=== PATIENT | female | born 1990 | race Caucasian/White ===

== ENCOUNTER 2017-02-04 08:51 | Outpatient (CLI) | payer BC | END 2017-02-04 08:52 | disposition home or self-care (01) | DX: K50.819 Crohn's disease of both small and large intestine with unspecified complications (principal) ==

== ENCOUNTER 2017-07-04 08:22 | Outpatient (CLI) | payer BC ==
[2017-07-04 12:17] LABS: HCT - HEMATOCRIT 39.7 % (37.0-47.0); HGB - HEMOGLOBIN 13.3 g/dL (12.0-16.0); MEAN CORPUSCULAR HEMOGLOBIN 30.5 pg (27.0-31.0); MEAN CORPUSCULAR HGB CONC 33.5 g/dL (32.0-36.0); MEAN PLATELET VOLUME 7.9 fL (7.9-10.8); RED BLOOD COUNT 4.36 10^6/uL (4.20-5.40); RED CELL DISTRIBUTION WIDTH 14.5 % (12.0-15.0); WHITE BLOOD COUNT 5.1 x10^3/uL (4.8-10.8)
[2017-07-04 12:19] LABS: ALBUMIN/GLOBULIN RATIO 1.2 (1.0-2.2); BILIRUBIN,TOTAL 0.5 mg/dL (0.2-1.0); CALCIUM 8.6 mg/dL (8.5-10.3); POTASSIUM 3.7 mmol/L (3.5-5.0); TOTAL PROTEIN 6.7 g/dL (6.7-8.2)
== END 2017-07-04 08:23 | disposition home or self-care (01) ==
LOC: LAB.F 08:22
PROVIDERS: ATTEND Physician Assistant
DX: K50.819 Crohn's disease of both small and large intestine with unspecified complications (principal)
CPT/HCPCS: 36415; 80053

== ENCOUNTER 2017-08-19 16:56 | Outpatient (CLI) | payer BC ==
--- NOTE | 2017-08-19 20:21 | Ultrasound Preliminary Report ---
Exam: US PELVIC W/TRANSVAGINAL IMPRESSION: 1. IUD in good position. 2. No ovarian torsion. 3. 15.2 x 6.2 x 12.1 cm simple cyst consistent with a left ovarian or adnexal cyst. [facility] SITE ID: [id number]
--- NOTE | 2017-08-19 20:43 | Ultrasound Report ---
EXAM: PELVIC ULTRASOUND EXAM DATE: 08/19/2017 05:59 PM. CLINICAL HISTORY: History of Crohn's disease. Follow-up left ovarian cyst. Unknown LMP. G0. IUD. COMPARISON: No prior pelvic ultrasound. CT abdomen and pelvis 12/29/2015. TECHNIQUE: Realtime transabdominal pelvic scan performed to identify the uterus and adnexa and as an overview of other pelvic structures, followed by transvaginal scan to provide greater detail of the u terus and adnexa, with static image documentation. FINDINGS: Uterus: 6.2 x 3.2 x 5.4 cm, volume 56.0 cc. Anteverted position. Normal overall size and echotexture. Masses: None. Endometrium: 3.3 mm. IUD in position. Cervix: Unremarkable. Right Ovary: 1.9 x 1.5 x 2.2 cm, volume 3.2 cc. Normal blood flow. 1.4 x 1.2 x 1.4 cm simple cyst. Left Ovary: 15.2 x 6.2 x 12.6 cm, volume 621 cc. Blood flow seen within the solid component of this c yst. There is a 15.2 x 6.2 x 12.1 cm thin-walled sonolucent cyst either arising from the left ovary or imm ediate adjacent to it, extending into the cul-de-sac, in close proximity to the right ovary. At the t davida of the previous CT study, no pelvic nor ovarian lesion seen. Free Fluid: None. Other: None. IMPRESSION: 1. IUD in good position. 2. No ovarian torsion. 3. 15.2 x 6.2 x 12.1 cm simple cyst consistent with a left ovarian or adnexal cyst. [facility] Referring Provider Line: [phone] SITE ID: [id number]
== END 2017-08-19 16:57 | disposition home or self-care (01) ==
LOC: DI 16:56
PROVIDERS: ATTEND Obstetrics & Gynecology
DX: N83.292 Other ovarian cyst, left side (principal); Z97.5 Presence of (intrauterine) contraceptive device
CPT/HCPCS: 76830; 76856

== ENCOUNTER 2017-10-11 15:01 | Outpatient (CLI) | payer BC ==
[2017-10-11 15:46] LABS: BASOPHILS % (AUTO) 0.5 %; EOSINOPHILS # (AUTO) 0.1 10^3/uL (0.0-0.7); HGB - HEMOGLOBIN 13.5 g/dL (12.0-16.0); LYMPHOCYTES % (AUTO) 30.8 %; MEAN CORPUSCULAR HEMOGLOBIN 30.5 pg (27.0-31.0); MEAN CORPUSCULAR HGB CONC 34.1 g/dL (32.0-36.0); MEAN CORPUSCULAR VOLUME 89.4 fL (81.0-99.0); MEAN PLATELET VOLUME 7.7 fL (7.9-10.8); MONOCYTES # (AUTO) 0.4 10^3/uL (0.0-1.0); MONOCYTES % (AUTO) 5.7 %; PLT - PLATELET COUNT 267 10^3/uL (130-450); RED BLOOD COUNT 4.44 10^6/uL (4.20-5.40); RED CELL DISTRIBUTION WIDTH 13.6 % (12.0-15.0); WHITE BLOOD COUNT 6.5 x10^3/uL (4.8-10.8)
== END 2017-10-11 15:02 | disposition home or self-care (01) ==
LOC: LAB 15:01
PROVIDERS: ATTEND Obstetrics & Gynecology
DX: Z01.812 Encounter for preprocedural laboratory examination (principal); D27.1 Benign neoplasm of left ovary
CPT/HCPCS: 36415; 85025; 86850; 86900; 86901

== ENCOUNTER 2017-10-12 06:22 | Inpatient (IN) | payer BC ==
--- NOTE | 2017-10-11 19:13 | PREOP HISTORY & PHYSICAL ---
DATE OF ADMISSION AND SURGERY: 10/12/2017. IDENTIFICATION: This is a 27-year-old G0. HISTORY OF PRESENT ILLNESS: Megan presents today for her preop visit. She has been scheduled for exploratory laparotomy and left ovarian cystectomy. Megan actually had an MRI in [place] on 08/12/2017, and an incidental finding of a mass of the ovary was seen. A subsequent ultrasound on 08/19/2017 of the pelvis and abdomen revealed the uterus measuring 6.2 x 3.2 x 5.4 cm and anteverted. Endometrium measured 3.3 cm. IUD in position. Right ovary measured 1.9 x 1.5 x 2.2 cm. Normal blood flow. There was a 1.4 x 1.2 x 1.4 cm simple cyst. Left ovary measures 15.2 x 6.2 x 12.6 cm. Blood flow seen within the solid component of the cyst and a 15.2 x 6.2 x 12.1 cm thin-walled sonolucent cyst, either arising from the left ovary immediately adjacent to it, extending to the cul-de-sac in close proximity of the right ovary. No free fluid. I discussed with Megan my recommendations for exploratory laparotomy and left ovarian cystectomy. Included in our discussion were the risks of hemorrhage, infection and damage to surrounding organs, which may include, but not limited to an inadvertent laceration, cauterization or ligation of the adjacent intestines, bladder and ureters. Furthermore, with this procedure due to the large size of the cyst, there was a potential of me having to remove the left adnexa. After all of Megan's questions were answered to her satisfaction, she verbalized her desire to proceed with surgery. All her questions were answered to her satisfaction. We will proceed to surgery. Currently, Megan is doing well. Denies any nausea, vomiting, fevers, chills, diarrhea or constipation. PAST MEDICAL HISTORY: 1. Crohn's disease. 2. Depression and anxiety. 3. Rheumatoid arthritis. 4. Acne. PAST SURGICAL HISTORY: 1. Left knee subluxation. 2. 07/20/2016, laparoscopic ileocolectomy with extensive small bowel resection. 3. Postop complications of abscesses. ALLERGIES: 1. SULFA IN WHICH SHE HAS A RASH. 2. VICODIN IN WHICH SHE HAS PRURITUS. MEDICATIONS: 1. Minocycline. 2. Cimzia. 3. Melatonin. SOCIAL HISTORY: She denies any tobacco or illicit drug use. She consumes alcohol on a rare basis. She is currently working with her mother, Krista Jules. She is currently not seeing anyone. She uses [facility] in [place], [place]. PAST SURGICAL HISTORY: Nulligravid but she does want children. PAST GYNECOLOGY HISTORY: She has monthly menses and bleeds for 5-7 days. She denies any dysmenorrhea or menorrhagia. Megan does have a difficult time taking the pill as she forgets. She received the Mirena IUD on 04/07/2016 and it has been working quite well. PHYSICAL EXAMINATION: VITAL SIGNS: Height of 71 inches. Blood pressure 120/80. Weight is 230 pounds. BMI is 32.1. GENERAL: Megan is a well-developed, well-nourished, female, in no apparent distress. She is alert and oriented x3. HEENT: Within normal limits. HEART: Regular. No murmurs, rubs. LUNGS: Lungs are clear to auscultation bilaterally. ABDOMEN: Soft, nontender. No masses, rebound, rigidity or guarding. She does have a well-healed laparoscopic incision secondary to her previous intestinal surgery. ASSESSMENT: 1. A 27-year-old G0. 2. Left ovarian cyst. 3. Posttraumatic stress disorder secondary to previous surgeries from her Crohn 's disease. PLAN: 1. We will obtain preoperative labs. 2. Prescription for Ativan for Megan since she is having some significant anxiety in anticipation of tomorrow's surgery. 3. Postop medications including oxycodone and Vioxx for Megan. 4. Megan to see me in 2 weeks for routine postop visit. TD: 10/11/2017 20:12 SUZANNE
[2017-10-12] MEDS ORDERED: ACETAMINOPHEN 1,000 MG/100 ML 100 ML IV ONE (06:31)
[2017-10-12] MEDS ORDERED: ceFAZolin 2 GM/50 ML 2 GM/50 ML BAG IV ONE (06:32)
[2017-10-12] MEDS ORDERED: CELECOXIB 100 MG CAPSULE PO ONE (06:33)
[2017-10-12] MEDS ORDERED: LACTATED RINGERS 1,000 ML IV ONE ×3 (07:21→09:48)
[2017-10-12 07:26] LABS: BASOPHILS % (AUTO) 0.3 %; EOSINOPHILS # (AUTO) 0.1 10^3/uL (0.0-0.7); EOSINOPHILS % (AUTO) 2.2 %; HGB - HEMOGLOBIN 13.6 g/dL (12.0-16.0); LYMPHOCYTES # (AUTO) 1.2 10^3/uL (1.5-3.5); LYMPHOCYTES % (AUTO) 25.8 %; MEAN CORPUSCULAR HEMOGLOBIN 30.1 pg (27.0-31.0); MEAN CORPUSCULAR HGB CONC 33.2 g/dL (32.0-36.0); MEAN CORPUSCULAR VOLUME 90.6 fL (81.0-99.0); MEAN PLATELET VOLUME 7.7 fL (7.9-10.8); MONOCYTES # (AUTO) 0.3 10^3/uL (0.0-1.0); MONOCYTES % (AUTO) 7.2 %; NEUTROPHILS % (AUTO) 64.5 %; PLT - PLATELET COUNT 266 10^3/uL (130-450); RED BLOOD COUNT 4.52 10^6/uL (4.20-5.40); RED CELL DISTRIBUTION WIDTH 13.1 % (12.0-15.0); WHITE BLOOD COUNT 4.7 x10^3/uL (4.8-10.8)
[2017-10-12 07:38] LABS: HCG,QUALITATIVE BLOOD NEGATIVE
[2017-10-12] MEDS ORDERED: METHYLENE BLUE 0.5% 50 MG/10 ML AMPULE IVP ONE (08:28)
[2017-10-12] MEDS ORDERED: NEOSTIGMINE 1 MG/1 ML 10 ML MDV IVP ONE (08:59)
[2017-10-12] MEDS ORDERED: PROPOFOL 200 MG/20 ML VIAL IVP ONE (08:59)
[2017-10-12] MEDS ORDERED: ROCURONIUM 50 MG/5 ML VIAL IVP ONE (08:59)
[2017-10-12] MEDS ORDERED: KETOROLAC 30 MG/ML VIAL IVP ONE (08:59)
[2017-10-12] MEDS ORDERED: MIDAZOLAM 2 MG/2 ML VIAL IVP ONE (08:59)
[2017-10-12] MEDS ORDERED: KETAMINE 500 MG/10 ML VIAL IVP ONE (08:59)
[2017-10-12] MEDS ORDERED: GLYCOPYRROLATE 1 MG/5 ML VIAL IVP ONE (08:59)
[2017-10-12] MEDS ORDERED: ONDANSETRON 4 MG/2 ML VIAL IVP ONE (08:59)
[2017-10-12] MEDS ORDERED: fentaNYL 100 MCG/2 ML VIAL IVP ONE (08:59)
[2017-10-12] MEDS ORDERED: SODIUM CHLORIDE FLUSH 0.9% 10 ML SYRINGE IVP PRN (09:49)
[2017-10-12] MEDS ORDERED: LORazepam 2 MG/ML VIAL IVP PRN (09:49)
[2017-10-12] MEDS ORDERED: MAGNESIUM HYDROXIDE 2,400 MG/30 ML UDC PO PRN (09:53)
[2017-10-12] MEDS ORDERED: diphenhydrAMINE 25 MG CAPSULE PO PRN (09:54)
[2017-10-12] MEDS ORDERED: ZOLPIDEM 5 MG TABLET PO PRN (09:54)
[2017-10-12] MEDS ORDERED: ACETAMINOPHEN 325 MG TABLET PO SCH (10:00)
[2017-10-12] MEDS: HYDROmorphone 1 MG/ML SYRINGE ONE ×2 (10:01→10:07)
--- NOTE | 2017-10-12 10:08 | OPERATIVE REPORT ---
Operative Report - General Admit Date: 10/12/17 - Other Other Information/Narrative: Date of Operation: 10/12/2017 Surgeon: Kaelyn Ramírez DO FACOG Surveillance Sensor Officer: Shakir Dickson MD FACOG Dietary Tech: Shanel Lala CRNA Anesthesia: GET Pre-op Dx: 1. 27 yo G0 2. Left ovarian cyst Post-op Dx: 1. 27 yo G0 2. Bilateral adnexal cysts 3. Endometriosis Procedure: 1. Exploratory laparotomy 2. Excision of bilateral adnexal cysts 3. Biopsy left side wall Findings: 1. Multiple bilateral cysts on adnexae. Not intrinsic to the ovaries or fallopian tubes. 2. Peritoneal endometriotic implants 3. Normal uterus, fallopian tubes, ovaries Specimens: 1. Pelvic washings 2. Right ovarian cysts 3. Left ovarian cysts 4. Right ovarian cyst fluid 5. Left peritoneal pelvic side wall biopsy Drains: 1. Rico catheter to gravity 2. Prevena wound vac EBL: 100 mL Complications: None Dictation: [id number]
[2017-10-12] MEDS: fentaNYL 100 MCG/2 ML VIAL ONE ×2 (10:13→10:22)
--- NOTE | 2017-10-12 10:44 | OPERATIVE REPORT ---
DATE OF SERVICE: Physician: Kaelyn Ramírez DO DATE OF OPERATION: 10/12/2017 SURGEON: Kaelyn Ramírez DO, FACOG FLOOR COVERING PRINTER ASSISTANT: Shakir Dickson MD, FACOG BACK SEAM STITCHER: Geo Coe CRNA. ANESTHESIA: General endotracheal tube. PREOPERATIVE DIAGNOSIS 1. A 27-year-old G0. 2. Left ovarian cyst. POSTOPERATIVE DIAGNOSES: 1. A 27-year-old G0. 2. Bilateral adnexal cysts which appeared to be reactive. 3. Endometriosis. PROCEDURE 1. Exploratory laparotomy. 2. Excision of bilateral adnexal cysts. 3. Biopsy of left pelvic sidewall. FINDINGS 1. Multiple bilateral cysts on the adnexa. Cysts do not appear intrinsic to the ovaries or fallopian tubes, but more of a reaction. 2. Peritoneal endometriotic implants on the left pelvic sidewall and the posterior cul-de-sac. 3. Normal uterus, fallopian tubes, and ovaries. SPECIMENS 1. Pelvic washings. 2. Right ovarian cyst. 3. Left ovarian cyst. 4. Right ovarian cystic fluid. 5. Left peritoneal pelvic sidewall biopsy. DRAINS 1. Rico catheter to gravity. 2. Prevena wound VAC. ESTIMATED BLOOD LOSS: 100 mL COMPLICATIONS: None. BRIEF HISTORY: Megan is a patient of [facility] who has been unfortunately diagnosed with Crohn's disease. During an MRI done with respect to her Crohn's disease, an incidental finding of a very large left ovarian cyst was noted. Megan came to me from referral. In addition, Megan has been noticing that she has been having significant abdominal pain, particularly on the left side. I discussed with Megan the risks, benefits, alternatives, indications, expectations of an exploratory laparotomy and excision of the left ovarian cyst. Included a discussion of the risk of hemorrhage, infection, damage to surrounding organs, which may include inadvertent laceration cauterization or ligation of the adjacent ureters, intestines and bladder. Furthermore, with this particular surgery, although I will do my best to keep her ovaries, an oophorectomy may be performed, depending on the clinical situation. After all Megan's questions were answered to her satisfaction, she verbalized her desire to proceed with surgery. Consent forms have been signed. OPERATION IN DETAIL: Megan was identified and consented, taken to the operating room where IV access was already in place, so she was then given sequential compression devices which were placed on the lower extremities and turned on. Megan was given satisfactory general endotracheal tube anesthesia as per Geo Coe CRNA. Megan was also given 2 grams of Ancef IV for postoperative cellulitis prophylaxis. Timeout was performed, which satisfactorily identified the patient's site of procedure and the procedure itself. A Pfannenstiel skin incision was made approximately 2 fingerbreadths above the level of pubic symphysis. This incision was then carried through the underlying layer of fascia with electrocautery. Fascia was nicked in the midline and extended laterally. Rectus muscles were then bluntly in the midline and the peritoneum entered bluntly. This incision was then extended superiorly and inferiorly. Pelvic washings were then obtained. Palpation of the pelvis revealed a very large dark greenish cyst after entrance into the peritoneum was performed. With palpation of the cyst, an inadvertent laceration to the cyst was made. Cyst fluid was obtained and sent off. After decompressing the large cyst, it had actually originated from the right adnexa, but did not look intrinsic to the adnexa itself, more of a reaction to inflammation. The cyst was excised via sharp dissection as well as electrocautery. Hemostasis was noted. There were also notations of 2 other small cysts attached to the ovary. These were sharply excised. Attention was then turned towards the left ovary. At least 3 ovarian cysts were identified and sharply excised. Hemostasis was noted. Further inspection of the pelvis revealed a spot of endometriosis on the left pelvic sidewall. This area of peritoneum was excised and sent off. Hemostasis was noted. Given Megan's surgical and clinical history, I decided to place Seprafilm around the adnexa as well as the posterior cul-de-sac in order to hopefully prevent any formation of future cysts. The peritoneum was then closed with a running stitch of 2-0 Vicryl and the same stitch was used to reapproximate the rectus muscles. Fascia was then closed with 0 Vicryl in a running fashion. Giuliana's fascia was then reapproximated with single interrupted stitches of 2-0 Vicryl. The skin was then reapproximated with 4-0 Monocryl in subcuticular fashion. Finally, a Prevena wound VAC was placed on top of the incision and turned on. Megan tolerated the procedure well and was taken back to recovery room in stable condition. Megan will be admitted to the hospital and given aggressive pain control with routine Celebrex, Tylenol and oxycodone. We will await the findings of the pathology report. TD: 10/12/2017 11:43 MTDD
[2017-10-12] MEDS: SIMETHICONE CHEW 80 MG TABLET PO SCH ×4 (10:56→21:09)
[2017-10-12] MEDS: LACTATED RINGERS 1,000 ML IV SCH ×2 (10:56→17:58)
[2017-10-12] MEDS: oxyCODONE 5 MG TABLET PO SCH ×3 (12:35→21:06)
[2017-10-12] MEDS: SODIUM CHLORIDE FLUSH 0.9% 10 ML SYRINGE IVP SCH ×2 (12:36→21:07)
--- NOTE | 2017-10-12 16:40 | PROVIDER PROGRESS NOTE ---
Subjective - Prog Note Date Prog Note Date: 10/12/17 Prog Note Time: 16:37 - Subjective Pt reports feeling: No change Subjective: Patient lying in bed. Feeling a little nauseated. Pain controlled so far. Has blankets on her abdomen to help with pain with coughing. Rico catheter in-situ and Prevena wound vac on her side. Objective - Vital Signs/Intake & Output Vital Signs: Vital Signs x48h Temp Pulse Resp BP Pulse Ox 10/12/17 15:51 98.2 F 85 20 109/62 100 10/12/17 14:19 97.9 F 80 18 106/63 99 10/12/17 12:20 97.5 F L 89 18 111/67 99 10/12/17 10:25 98 10/12/17 10:20 97.2 F L 76 18 122/72 94 10/12/17 10:15 99 10/12/17 10:10 100 10/12/17 10:05 100 10/12/17 10:00 100 10/12/17 09:55 100 10/12/17 09:50 100 10/12/17 09:49 98.4 F 83 17 113/65 98 10/12/17 09:45 100 Intake & Output: Intake & Output 10/09/17 10/10/17 10/11/17 10/12/17 23:59 23:59 23:59 23:59 Intake Total 370 Output Total 120 Balance 250 - Objective General Appearance: positive: No acute distress Abdomen: positive: Other (Prevena wound vac working well) - Lab Results Fish Bones: 10/12/17 07:09 Other Labs: Lab Results x24hrs 10/12/17 10/12/17 Range/Units 07:09 07:09 WBC 4.7 L (4.8-10.8) x10^3/uL RBC 4.52 (4.20-5.40) 10^6/uL Hgb 13.6 (12.0-16.0) g/dL Hct 40.9 (37.0-47.0) % MCV 90.6 (81.0-99.0) fL MCH 30.1 (27.0-31.0) pg MCHC 33.2 (32.0-36.0) g/dL RDW 13.1 (12.0-15.0) % Plt Count 266 (130-450) 10^3/uL MPV 7.7 L (7.9-10.8) fL Neut # 3.0 (1.5-6.6) 10^3/uL Lymph # 1.2 L (1.5-3.5) 10^3/uL [place] # 0.3 (0.0-1.0) 10^3/uL Eos # 0.1 (0.0-0.7) 10^3/uL Baso # 0.0 (0.0-0.1) 10^3/uL Absolute Nucleated RBC 0.00 x10^3/uL Nucleated RBC % 0.1 /100WBC Serum HCG, Qual NEGATIVE Assessment/Plan - Problem List (1) Pelvic cyst Impression: 27 yo G0 S/p exploratory laparotomy and excision of bilateral para-adnexal cysts Normal recovery Discussed findings with the patient as well as plan of care. Cysts benign and likely reaction from inflammation of Crohn's Disease. No concerns with patient' s ovaries or ability to conceive. Hopefully patient will go home tomorrow. She will need to be able to ambulate, tolerate a regular diet, urinate and pain controlled with po meds. Patient verbalizes her understanding.
[2017-10-12] MEDS: ONDANSETRON 4 MG/2 ML VIAL IVP PRN (16:48)
[2017-10-12] MEDS ORDERED: PROCHLORPERAZINE 10 MG/2 ML VIAL IVP PRN (18:15)
[2017-10-12] MEDS: ACETAMINOPHEN 500 MG TABLET PO SCH (18:27)
[2017-10-12] MEDS: DOCUSATE SODIUM 100 MG CAPSULE PO SCH (21:06)
[2017-10-12] MEDS: CELECOXIB 100 MG CAPSULE PO SCH (21:06)
[2017-10-12] MEDS: FAMOTIDINE 20 MG TABLET PO SCH (21:07)
[2017-10-13] MEDS: ACETAMINOPHEN 500 MG TABLET PO SCH ×2 (00:43→09:59)
[2017-10-13] MEDS: oxyCODONE 5 MG TABLET PO SCH ×4 (00:43→13:21)
[2017-10-13] MEDS: LACTATED RINGERS 1,000 ML IV SCH ×2 (00:44→08:21)
[2017-10-13] MEDS: SODIUM CHLORIDE FLUSH 0.9% 10 ML SYRINGE IVP SCH (05:56)
--- NOTE | 2017-10-13 08:02 | PROVIDER PROGRESS NOTE ---
Subjective - Prog Note Date Prog Note Date: 10/13/17 Prog Note Time: 08:00 - Subjective Pt reports feeling: Improved Subjective: Patient sitting in bed, looking at breakfast. Has no appetite. Compazine helped yesterday but worried about nausea when she gets out of bed today. Abernathy catheter still in-situ. No overnight events. Would like to go home today if possible. Objective - Vital Signs/Intake & Output Reviewed Vital Signs: Yes Vital Signs: Vital Signs x48h Temp Pulse Resp BP Pulse Ox 10/13/17 07:38 98.4 F 86 16 106/60 97 Intake & Output: Intake & Output 10/10/17 10/11/17 10/12/17 10/13/17 23:59 23:59 23:59 23:59 Intake Total 1645 1000 Output Total 1720 450 Balance -75 550 - Objective General Appearance: positive: No acute distress Eyes Bilateral: positive: Normal inspection Abdomen: positive: Non-tender (Prevena wound vac in place and working well) - Lab Results Fish Bones: 10/12/17 07:09 Other Labs: Lab Results x24hrs 10/12/17 Range/Units 07:09 Serum HCG, Qual NEGATIVE Assessment/Plan - Problem List (1) Pelvic cyst Impression: 27 yo G0 S/p exploratory laparotomy and bilateral excision of para-adnexal cysts , POD #1 Normal recovery but concerning she may be slower Remove abernathy this AM Ambulate Continue aggressive pain control Will return in PM. If patient able to ambulate and urinate, and if pain and nausea under control, will discharge to home today.
[2017-10-13] MEDS: SIMETHICONE CHEW 80 MG TABLET PO SCH ×2 (08:15→13:21)
[2017-10-13] MEDS: CELECOXIB 100 MG CAPSULE PO SCH (08:15)
[2017-10-13] MEDS: FAMOTIDINE 20 MG TABLET PO SCH (08:15)
[2017-10-13] MEDS: DOCUSATE SODIUM 100 MG CAPSULE PO SCH (08:15)
[2017-10-13] MEDS: ONDANSETRON 4 MG/2 ML VIAL IVP PRN (09:50)
[2017-10-13 12:35] VITALS: BP 112/56
--- NOTE | 2017-10-13 13:19 | PROVIDER PROGRESS NOTE ---
Subjective - Prog Note Date Prog Note Date: 10/13/17 Prog Note Time: 13:13 - Subjective Pt reports feeling: Improved Subjective: Patient in bed. Has ambulated, urinated without difficulty. Pain controlled as well as nausea. Verbalizes her desire to go home. Objective - Vital Signs/Intake & Output Reviewed Vital Signs: Yes Vital Signs: Vital Signs x48h Temp Pulse Resp BP Pulse Ox 10/13/17 12:34 98.1 F 73 16 112/56 L 95 10/13/17 07:38 98.4 F 86 16 106/60 97 Intake & Output: Intake & Output 10/10/17 10/11/17 10/12/17 10/13/17 23:59 23:59 23:59 23:59 Intake Total 1645 2500 Output Total 1720 575 Balance -75 1925 - Objective General Appearance: positive: No acute distress Eyes Bilateral: positive: Normal inspection Abdomen: positive: Non-tender (Wound vac in place and working well.) Extremities: positive: Non-tender Neurologic/Psychiatric: positive: Oriented x3 - Lab Results Fish Bones: 10/12/17 07:09 Assessment/Plan - Problem List (1) Pelvic cyst Impression: 27 yo G0 S/p exploratory laparotomy and bilateral excision of para-adnexal masses Normal recovery Discharge to home Has meds for home convalescence (New Rx celebrex called in). Call for worsening fevers, chills, abdominal pain Follow up with Darrell either Tuesday or Tuesday for removal of Prevena wound vac Discharge summary dictated: [id number]
--- NOTE | 2017-10-13 15:26 | DISCHARGE SUMMARY ---
DATE OF ADMISSION: 10/12/2017 DATE OF DISCHARGE: 10/13/2017 DIAGNOSES AT ADMISSION: 1. A 27-year-old G0. 2. Left ovarian cyst. DIAGNOSES AT DISCHARGE: 1. A 27-year-old G0. 2. Status post exploratory laparotomy with excision of bilateral para-adnexal cysts. 3. Normal recovery. BRIEF HISTORY OF PRESENT ILLNESS: The patient is a patient of [facility] who had an incidental finding of adnexal masses on MRI. This workup was done in order to treat her Crohn's disease. Pelvic ultrasound was performed, which showed a significantly large left ovarian cyst. Patient underwent an exploratory laparotomy and excision of bilateral para- adnexal cysts on 10/12/2017. These cysts do not appear to emanate from the adnexa itself, but more of a reaction from her Crohn's disease. The cysts were sent off to pathology. There was also suspicion of endometriosis, so biopsies were taken of the left pelvic sidewall. There were no complications. EBL was approximately 100 mL. The patient has done well with her recovery. She is ambulating and tolerating a regular diet. She is able to ambulate and urinate without difficulty. She has verbalized her desire to be discharged to home. The patient will be discharged home today and instructed to not lift anything heavier than a gallon of milk. She has prescriptions for Colace, and Tylenol, though I sent a prescription for Vioxx, apparently, there is no generic equivalent for patient and another prescription for Celebrex has been called in. She also has a prescription for oxycodone for any breakthrough pain she has. Patient is to see me at [facility] on either Tuesday or Tuesday for removal of her Prevena wound VAC. Should she however, start to have any significant abdominal pain, nausea, vomiting, fevers or chills, she is to call me immediately. TD: 10/13/2017 16:25 MTDNick
== END 2017-10-13 14:18 | disposition home or self-care (01) | DRG 742 ==
LOC: MS2 06:22
PROVIDERS: ADMIT Obstetrics & Gynecology; ATTEND Obstetrics & Gynecology
PROC: 0JBC0ZX Excision of Pelvic Region Subcutaneous Tissue and Fascia, Open Approach, Diagnostic (ICD-10-PCS; 2017-10-12)
PROC: 0UB20ZZ Excision of Bilateral Ovaries, Open Approach (ICD-10-PCS; principal; 2017-10-12 07:30)
DX: N83.202 Unspecified ovarian cyst, left side (principal); K50.90 Crohn's disease, unspecified, without complications; N83.291 Other ovarian cyst, right side; N83.8 Other noninflammatory disorders of ovary, fallopian tube and broad ligament; N80.3 Endometriosis of pelvic peritoneum; F32.9 Major depressive disorder, single episode, unspecified; F41.9 Anxiety disorder, unspecified; F43.10 Post-traumatic stress disorder, unspecified; M06.9 Rheumatoid arthritis, unspecified; Z97.5 Presence of (intrauterine) contraceptive device
CPT/HCPCS: 84703; 85025; 86850; 86900; 86901

== ENCOUNTER 2018-01-24 07:27 | Outpatient (CLI) | payer BC ==
[2018-01-24 10:43] LABS: ALBUMIN 3.7 g/dL (3.2-5.5); ALBUMIN/GLOBULIN RATIO 1.2 (1.0-2.2); BILIRUBIN,TOTAL 0.4 mg/dL (0.2-1.0); CALCIUM 8.8 mg/dL (8.5-10.3); CREATININE 0.8 mg/dL (0.4-1.0); TOTAL PROTEIN 6.7 g/dL (6.7-8.2)
[2018-01-24 10:51] LABS: HGB - HEMOGLOBIN 12.9 g/dL (12.0-16.0); MEAN CORPUSCULAR HEMOGLOBIN 30.1 pg (27.0-31.0); MEAN CORPUSCULAR HGB CONC 33.2 g/dL (32.0-36.0); MEAN CORPUSCULAR VOLUME 90.6 fL (81.0-99.0); MEAN PLATELET VOLUME 8.1 fL (7.9-10.8); RED BLOOD COUNT 4.3 10^6/uL (4.20-5.40); RED CELL DISTRIBUTION WIDTH 14.1 % (12.0-15.0); WHITE BLOOD COUNT 5.6 x10^3/uL (4.8-10.8)
== END 2018-01-24 07:28 | disposition home or self-care (01) ==
LOC: LAB.F 07:27
PROVIDERS: ATTEND Internal Medicine Gastroenterology
DX: K50.819 Crohn's disease of both small and large intestine with unspecified complications (principal)
CPT/HCPCS: 36415; 80053

== ENCOUNTER 2018-09-04 17:48 | Emergency (ER) | payer BC ==
[2018-09-04 19:10] LABS: BILIRUBIN,URINE NEGATIVE (NEGATIVE); GLUCOSE, URINE (UA) NEGATIVE (NEGATIVE); KETONES,URINE (UA) NEGATIVE (NEGATIVE); LEUKOCYTE ESTERASE, URINE NEGATIVE (NEGATIVE); NITRITE,URINE NEGATIVE (NEGATIVE); OCCULT BLOOD,URINE SMALL (NEGATIVE); PH,URINE 6.5 PH (5.0-7.5); PROTEIN,URINE NEGATIVE (NEGATIVE); UROBILINOGEN,URINE 0.2 (NORMAL) E.U./dL (NORMAL)
[2018-09-04 19:13] LABS: CLARITY,URINE HAZY (CLEAR)
--- NOTE | 2018-09-04 19:15 | ED Physician Documentation ---
PD HPI FEMALE - Stated complaint Stated Complaint: FEMALE - Chief complaint Chief Complaint: Abd Pain - History obtained from History obtained from: Patient - History of Present Illness Timing - onset: Today Timing - duration: Days (1) Timing - details: Abrupt onset, Still present Associated symptoms: Pelvic pain. No: Fever, Vaginal bleeding, Vaginal discharge, Genital sore/lesion, Dysuria Contributing factors: No: , Exposed to STD OB-CREDIT COLLECTION SPECIALIST History: Ovarian cysts Similar symptoms before: Diagnosis (ovarian cyst on right that needed surgery last ) Recently seen: Not recently seen Review of Systems Constitutional: denies: Fever Nose: denies: Rhinorrhea / runny nose, Congestion Throat: denies: Sore throat GI: denies: Vomiting, Constipation, Diarrhea : denies: Dysuria, Frequency, Vaginal bleeding, Missed period PD PAST MEDICAL HISTORY - Past Medical History Past Medical History: Yes Cardiovascular: None Respiratory: None Neuro: None Endocrine/Autoimmune: None GI: Crohn's disease CREDIT COLLECTION SPECIALIST: None : None HEENT: None Psych: None Musculoskeletal: Rheumatoid arthritis Derm: None - Past Surgical History Past Surgical History: Yes Ortho: Other - Present Medications Home Medications: Ambulatory Orders Medication Instructions Recorded Confirmed Certolizumab [Cimzia] 400 mg SUBQ Q28D 10/11/17 10/12/17 Minocycline HCl 100 mg PO QPM 10/11/17 10/12/17 Melatonin 20 mg PO QPM 10/12/17 10/12/17 Naproxen 500 mg PO BID #20 tablet 09/04/18 Oxycodone HCl/Acetaminophen 1 each PO Q6H PRN #14 tablet 09/04/18 [Percocet 5-325 mg Tablet] - Allergies Allergies/Adverse Reactions: Allergies Allergy/AdvReac Type Severity Reaction Status Date / Time Sulfa (Sulfonamide Allergy Unknown Rash Verified 09/04/18 17:55 Antibiotics) hydrocodone bitartrate * AdvReac Unknown Itching Verified 09/04/18 17:55 [From Vicodin] - Social History Does the pt smoke?: No Smoking Status: Never smoker Does the pt drink ETOH?: No ETOH Use: Wine, Beer, Liquor Does the pt have substance abuse?: No - Immunizations Immunizations are current?: Yes - POLST Patient has POLST: No PD ED PE NORMAL - Vitals Vital signs reviewed: Yes - General General: Alert and oriented X 3, No acute distress, Well developed/nourished - Neck Neck: Supple, no meningeal sign, No adenopathy - Cardiac Cardiac: RRR, No murmur - Respiratory Respiratory: Clear bilaterally - Abdomen Abdomen: Normal bowel sounds, Soft, Non distended, No organomegaly, Other (tender left lower abd with local guarding; no percussion nor rebound tenderness. ) - Female Female : Deferred - Back Back: No CVA TTP - Derm Derm: Normal color, Warm and dry Results - Vitals Vitals: Oxygen O2 Source Room air - Labs Labs: Laboratory Tests 09/04/18 09/04/18 19:00 19:00 Urine Color YELLOW Urine Clarity HAZY Urine pH 6.5 Ur Specific [place] >=1.030 H >=1.030 H Urine Protein NEGATIVE Urine Glucose (UA) NEGATIVE Urine Ketones NEGATIVE Urine Occult Blood SMALL H Urine Nitrite NEGATIVE Urine Bilirubin NEGATIVE Urine Urobilinogen 0.2 (NORMAL) Ur Leukocyte Esterase NEGATIVE Urine RBC 0-5 Urine WBC 0-3 Ur Squamous Epith Cells MOD Squamous H Urine Bacteria Few Ur Microscopic Review INDICATED Urine Culture Comments NOT INDICATED Urine HCG, Qual NEGATIVE - Rads (name of study) pelvic U/ Radiology: Prelim report reviewed (left 3 cm hemorrhagic cyst without free fluid. Ovary with good blood flow. ) PD MEDICAL DECISION MAKING - ED course Complexity details: considered differential (pelvic pain similar to prior cyst. Has hemorrhagic cyst left side, but not too big. No free fluid. ), d/w patient Departure - Departure Disposition: 01 Home, Self Care Clinical Impression: Pelvic pain Ovarian cyst Qualifiers: Laterality: left Qualified Code(s): N83.202 - Unspecified ovarian cyst, left side Condition: Stable Record reviewed to determine appropriate education?: Yes Instructions: ED Cyst Ovarian Follow-Up: Kaelyn Ramírez DO [Provider Admit Priv/Credential] - Prescriptions: Naproxen 500 mg PO BID #20 tablet Oxycodone HCl/Acetaminophen [Percocet 5-325 mg Tablet] 1 each PO Q6H PRN #14 tablet PRN Reason: pain Comments: You do have a small ovarian cyst on the left measuring 3 x 2 cm. This is large enough and does have an appearance on ultrasound of being hemorrhagic which means there had been some bleeding into the cyst. This could account for hurting at this time. There have been no treatment in particular just to see if it goes away. Use an anti-inflammatory such as naproxen twice daily for the next 7-10 days. Add pain medicine if needed. Over the next week or so. Return if worsening. Discharge Date/Time: 09/04/18 22:10
[2018-09-04 19:19] LABS: RBC,URINE 0-5 /HPF (0-5); SQUAMOUS EPITHELIAL CELL,UR MOD Squamous (<= Few)
[2018-09-04 19:20] LABS: BACTERIA,URINE Few /HPF (None Seen)
[2018-09-04] MEDS ORDERED: oxyCODONE 5 MG TABLET PO STA ×2 (19:31→21:38)
[2018-09-04] MEDS ORDERED: NAPROXEN 250 MG TABLET PO STA (19:31)
[2018-09-04 21:04] LABS: HCG UR QUAL NEGATIVE
--- NOTE | 2018-09-04 21:11 | Ultrasound Report ---
Reason: pelvic pain, l Procedure Date: 09/04/2018 Accession Number: [id number] / [id number] Procedure: US - Pelvic w/Transvag+Doppler Comp CPT Code: FULL RESULT: EXAM: PELVIC ULTRASOUND. EXAM DATE: 09/04/2018 08:14 PM. CLINICAL HISTORY: Left-sided pelvic pain, history of IUD, left adnexal cyst removal in October 2017. COMPARISON: Pelvic with transvaginal 08/19/2017 5:11 PM. TECHNIQUE: Realtime transabdominal pelvic scan performed to identify the uterus and adnexa and as an overview of other pelvic structures, followed by transvaginal scan to provide greater detail of the uterus and adnexa, with static image documentation. FINDINGS: LMP: 08/29/2018 Uterus: Uterus is normal in position and normal in configuration. Uterus measures 6.7 x 3.2 x 4.8 cm. No evident uterine masses. Endometrium: Satisfactory appearance of the IUD. Endometrium, as visualized with the IUD in position, measures 2.8 mm. No suspicious endometrial vascularity. Cervix: No suspicious lesion. Right Ovary: Normal in appearance measuring 3.1 x 1.9 x 1.7 cm. Normal blood flow. Left Ovary: Normal in appearance measuring 4.3 x 2.9 x 3.8 cm. Normal blood flow. Hypoechoic lesion within the left ovary noted with low-level internal echoes, measuring 3.0 x 2.5 x 3.6 cm. Prior noted large cystic abnormality within the left ovary is no longer identified on this exam. Fluid: No signficant free fluid. Other: No other significant findings. IMPRESSION: 1. There is no evidence of torsion. 2. Interim removal of the large cystic abnormality seen on the prior study from the left adnexa. 3. There is a new hypoechoic abnormality within the left ovary measuring 3.0 x 2.5 x 3.6 cm. Differential diagnosis includes hemorrhagic cyst versus endometrioma. Follow-up pelvic ultrasound recommended at 6 weeks. RADIA
[2018-09-04 21:28] VITALS: BP 130/84
== END 2018-09-04 22:10 | disposition home or self-care (01) ==
LOC: ED 17:48
DX: N83.202 Unspecified ovarian cyst, left side (principal); Z87.42 Personal history of other diseases of the female genital tract
CPT/HCPCS: 76830; 76856; 81001; 81025; 93975; 99283; A9270; 81003; 87086

== ENCOUNTER 2018-10-18 19:15 | Outpatient (CLI) | payer BC ==
--- NOTE | 2018-10-19 07:22 | Ultrasound Report ---
Reason: CYST OF UTERINE ADNEXA Procedure Date: 10/18/2018 Accession Number: [id number] / [id number] Procedure: US - Pelvic w/Transvaginal CPT Code: FULL RESULT: EXAM: PELVIC ULTRASOUND EXAM DATE: 10/18/2018 08:15 PM. CLINICAL HISTORY: Ovarian cyst. COMPARISON: PEL NON OB W/TV DOP 09/04/2018 8:14 PM. TECHNIQUE: Real-time transabdominal pelvic scan performed to identify the uterus and adnexa and as an overview of other pelvic structures, followed by transvaginal scan to provide greater detail of the uterus and adnexa, with static image documentation. FINDINGS: Uterus: 6.7 x 4.7 x 3.6 cm, volume 59 cc. Anteverted position. Normal overall size and echotexture. Masses: None. Endometrium: 4 mm. Intrauterine device is stable and appropriate in position. Cervix: Unremarkable. Right Ovary: 4.6 x 4.2 x 4.1 cm, volume 41 cc. The right ovary is enlarged due to a new 3.6 x 3.4 x 3.3 cm complex cyst demonstrating internal laciform echotexture characteristic for hemorrhagic cyst. Left Ovary: 3.8 x 3.4 x 2.5 cm, volume 17 cc. As before, a 2.7 x 2.8 x 2.0 cm oval nodule with low-level echoes is again seen, previously 3.0 x 2.5 x 3.6 cm. No new adnexal abnormality is seen. Free Fluid: None. Other: None. IMPRESSION: 1. Stable 2.8 cm left ovarian nodule with appearance characteristic for endometrioma. 2. New 3.6 cm complex right ovarian cyst with appearance characteristic for hemorrhagic cyst. 3. Intrauterine device in stable position, otherwise, normal uterus and endometrium. RADIA
== END 2018-10-18 19:16 | disposition home or self-care (01) ==
LOC: DI 19:15
PROVIDERS: ATTEND Obstetrics & Gynecology
DX: N83.8 Other noninflammatory disorders of ovary, fallopian tube and broad ligament (principal); N83.291 Other ovarian cyst, right side; Z97.5 Presence of (intrauterine) contraceptive device
CPT/HCPCS: 76830; 76856

== ENCOUNTER 2019-06-28 08:31 | Outpatient (CLI) | payer BC ==
--- NOTE | 2019-06-30 07:11 | Ultrasound Report ---
Reason: CYST OF UTERINE ADNEXA, HISTORY OF OVARIAN CYST Procedure Date: 06/28/2019 Accession Number: [id number] / [id number] Procedure: US - Pelvic w/Transvaginal CPT Code: FULL RESULT: EXAM: PELVIC ULTRASOUND EXAM DATE: 06/28/2019 09:40 AM. CLINICAL HISTORY: Cyst of uterine adnexa, history of ovarian cyst. COMPARISON: None. TECHNIQUE: Realtime transabdominal pelvic scan performed to identify the uterus and adnexa and as an overview of other pelvic structures, followed by transvaginal scan to provide greater detail of the uterus and adnexa, with static image documentation. FINDINGS: Uterus: 7.6 x 3.7 x 4.3 cm, volume 63.2 cc. Anteverted position. Normal overall size and echotexture. Masses: None. Endometrium: 6.8 mm. No abnormal flow, endometrial mass or focal thickening. Cervix: Unremarkable. Right Ovary: 4.2 x 3.2 x 3.7 cm, volume 26.0 cc. Normal echotexture and blood flow. 2.8 x 2.8 x 3.1 cm complex debris-containing avascular right ovarian cyst. No internal vascularity is noted. Left Ovary: 3.8 x 3.4 x 4.9 cm, volume 33.1 cc. Normal echotexture and blood flow. Complex 3.6 x 3.2 x 3.2 cm left ovary and cyst with lacelike avascular debris. No thickened septations or mural nodules. Additional 3.1 x 2.5 x 2 cm lateral left ovarian cystic mass with low-level internal echoes. No vascular components noted on color imaging. Free Fluid: None. Other: None. IMPRESSION: 1. 3.1 cm complex debris-containing avascular right ovarian cyst. No vascular components identified on color imaging. Otherwise, normal right ovary. Imaging findings favor hemorrhagic cyst. 2. 2 complex left ovarian cysts measuring 3.6 cm and 3.1 cm, respectively. Imaging findings most consistent with hemorrhagic cyst and/or endometriomas. 3. Recommend follow-up ultrasound in 1-2 cycles in order to document resolution of findings. 4. No endometrial mass or polyp. No uterine fibroids. RADIA
== END 2019-06-28 08:32 | disposition home or self-care (01) ==
LOC: DI 08:31
PROVIDERS: ATTEND Obstetrics & Gynecology
DX: N83.292 Other ovarian cyst, left side (principal); N83.291 Other ovarian cyst, right side
CPT/HCPCS: 76830; 76856

== ENCOUNTER 2019-07-18 10:04 | Emergency (ER) | payer BC ==
[2019-07-18 12:32] LABS: BASOPHILS % (AUTO) 0.2 %; EOSINOPHILS % (AUTO) 0.1 %; HGB - HEMOGLOBIN 13.6 g/dL (12.0-16.0); LYMPHOCYTES # (AUTO) 0.7 10^3/uL (1.5-3.5); MEAN CORPUSCULAR HEMOGLOBIN 30.6 pg (27.0-31.0); MEAN CORPUSCULAR HGB CONC 32.9 g/dL (32.0-36.0); MEAN PLATELET VOLUME 9.7 fL (7.9-10.8); MONOCYTES # (AUTO) 0.5 10^3/uL (0.0-1.0); MONOCYTES % (AUTO) 3.6 %; NEUTROPHILS # (AUTO) 12.8 10^3/uL (1.5-6.6); NEUTROPHILS % (AUTO) 90.7 %; PLT - PLATELET COUNT 244 10^3/uL (130-450); RED BLOOD COUNT 4.45 10^6/uL (4.20-5.40); RED CELL DISTRIBUTION WIDTH 12.9 % (12.0-15.0); WHITE BLOOD COUNT 14.1 x10^3/uL (4.8-10.8)
[2019-07-18] MEDS ORDERED: HYDROmorphone 1 MG/ML CARPUJECT IVP STA ×2 (12:39→15:21)
[2019-07-18] MEDS ORDERED: ONDANSETRON 4 MG/2 ML VIAL IVP STA (12:39)
[2019-07-18] MEDS ORDERED: SODIUM CHLORIDE 0.9% 1,000 ML IV ONE (12:39)
--- NOTE | 2019-07-18 12:43 | ED Physician Documentation ---
History of Present Illness - Stated complaint Stated Complaint: SOA - Chief complaint Chief Complaint: General - History obtained from History obtained from: Patient (This is a 29-year-old woman with history of Crohn's disease, rheumatoid arthritis, pleurisy and pneumonia who has 2 major issues. Since 2 days ago she has had a bandlike lower chest pain going around from the front to the back that hurts when she takes a deep breath with mild shortness of breath. She also has a minimally productive cough and chills. She also complains of central and upper abdominal pain, decreased hard bowel movements and vomiting last night similar prior episodes of bowel obstruction. She has had some sort of bowel resection for Crohn's in the remote past. She is on Entyvio injections for her Crohn's.) Review of Systems Ten Systems: 10 systems reviewed and negative Constitutional: reports: Fever, Chills, Fatigue Cardiac: reports: Chest pain / pressure. denies: Palpitations Respiratory: reports: Dyspnea, Cough GI: reports: Abdominal Pain, Nausea, Vomiting, Constipation. 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 : None HEENT: None Psych: None Musculoskeletal: Rheumatoid arthritis Derm: None - Past Surgical History Past Surgical History: Yes Ortho: Other - Present Medications Home Medications: Ambulatory Orders Medication Instructions Recorded Confirmed Certolizumab [Cimzia] 400 mg SUBQ Q28D 10/11/17 10/12/17 Minocycline HCl 100 mg PO QPM 10/11/17 10/12/17 Melatonin 20 mg PO QPM 10/12/17 10/12/17 Naproxen 500 mg PO BID #20 tablet 09/04/18 Oxycodone HCl/Acetaminophen 1 each PO Q6H PRN #14 tablet 09/04/18 [Percocet 5-325 mg Tablet] Cefdinir 300 mg PO BID #20 capsule 07/18/19 Doxycycline Hyclate 100 mg PO BID #20 capsule 07/18/19 Fluconazole [Diflucan] 150 mg PO ONCE PRN #1 tablet 07/18/19 Morphine Ir [Ms Ir] 15 mg PO Q6H PRN #15 tablet 07/18/19 Ondansetron Odt [Zofran] 4 mg TL Q6H PRN #10 tablet 07/18/19 - Allergies Allergies/Adverse Reactions: Allergies Allergy/AdvReac Type Severity Reaction Status Date / Time Sulfa (Sulfonamide Allergy Unknown Rash Verified 07/18/19 10:07 Antibiotics) hydrocodone bitartrate * AdvReac Unknown Itching Verified 07/18/19 10:07 [From Vicodin] - Social History Does the pt smoke?: No Smoking Status: Never smoker Does the pt drink ETOH?: No Does the pt have substance abuse?: No - Immunizations Immunizations are current?: Yes - POLST Patient has POLST: No PD ED PE NORMAL - Vitals Vital signs reviewed: Yes - General General: Alert and oriented X 3, No acute distress - HEENT HEENT: PERRL, EOMI - Neck Neck: Supple, no meningeal sign, No bony TTP - Cardiac Cardiac: RRR, No murmur - Respiratory Respiratory: No respiratory distress, Other (Splinting her breaths and therefore diminished throughout especially at the bases) - Abdomen Abdomen: Other (Minimal diffuse tenderness with diminished bowel tones, no surgical signs) - Derm Derm: No rash - Extremities Extremities: No deformity, No tenderness to palpate, No edema, No calf tenderness / cord - Neuro Neuro: Alert and oriented X 3, Normal speech Results - Vitals Vitals: Vital Signs - 24 hr 07/18/19 07/18/19 07/18/19 10:07 14:00 16:54 Temperature 38.0 C H Heart Rate 111 H 98 91 Respiratory 18 16 18 Rate Blood Pressure 110/59 L 98/67 107/74 O2 Saturation 100 99 99 Oxygen O2 Source Room air - Labs Labs: Laboratory Tests 07/18/19 07/18/19 07/18/19 11:55 11:55 12:46 WBC 14.1 H RBC 4.45 Hgb 13.6 Hct 41.4 MCV 93.0 MCH 30.6 MCHC 32.9 RDW 12.9 Plt Count 244 MPV 9.7 Neut # (Auto) 12.8 H Lymph # (Auto) 0.7 L [place] # (Auto) 0.5 Eos # (Auto) 0.0 Baso # (Auto) 0.0 Absolute Nucleated RBC 0.00 Nucleated RBC % 0.0 D-Dimer Sodium 138 Potassium 3.9 Chloride 107 Carbon Dioxide 21 Anion Gap 10.0 BUN 18 Creatinine 0.8 Estimated GFR (MDRD) 85 L Glucose 103 H Calcium 9.0 Total Bilirubin 0.6 AST 29 ALT 33 Alkaline Phosphatase 26 L Total Protein 7.9 Albumin 4.0 Globulin 3.9 Albumin/Globulin Ratio 1.0 Lipase 37 Urine Color DARK YELLOW Urine Clarity CLEAR Urine pH 5.5 Ur Specific [place] >=1.030 H Urine Protein NEGATIVE Urine Glucose (UA) NEGATIVE Urine Ketones NEGATIVE Urine Occult Blood TRACE-INTA Urine Nitrite NEGATIVE Urine Bilirubin NEGATIVE Urine Urobilinogen 0.2 (NORMAL) Ur Leukocyte Esterase NEGATIVE Ur Microscopic Review NOT INDICATED Urine Culture Comments NOT INDICATED Urine HCG, Qual NEGATIVE 07/18/19 Unknown WBC RBC Hgb Hct MCV MCH MCHC RDW Plt Count MPV Neut # (Auto) Lymph # (Auto) [place] # (Auto) Eos # (Auto) Baso # (Auto) Absolute Nucleated RBC Nucleated RBC % D-Dimer 342.0 H Sodium Potassium Chloride Carbon Dioxide Anion Gap BUN Creatinine Estimated GFR (MDRD) Glucose Calcium Total Bilirubin AST ALT Alkaline Phosphatase Total Protein Albumin Globulin Albumin/Globulin Ratio Lipase Urine Color Urine Clarity Urine pH Ur Specific [place] Urine Protein Urine Glucose (UA) Urine Ketones Urine Occult Blood Urine Nitrite Urine Bilirubin Urine Urobilinogen Ur Leukocyte Esterase Ur Microscopic Review Urine Culture Comments Urine HCG, Qual - Rads (name of study) 2v chest Radiology: EMP read contemporaneously (NAD) CT Abd and CTA Chest Radiology: EMP read contemporaneously (Postsurgical changes, right upper lobe pneumonia, stable 2.7 cm left ovarian cyst.) Procedures - Central Line Central Line Preparation: Consent Obtained, Time out completed, Ultrasound used, Sterile prep and drape Central line location: Right IJ Central line type: Triple lumen Central line aftercare: Chlorhexidine disc placed PD MEDICAL DECISION MAKING - ED course ED course: 29-year-old woman with Crohn's and history of rheumatoid arthritis presents with pleuritic chest and back pain also abdominal pain concern for bowel obstruction. Nurse tried and failed for an IV and I tried several times using ultrasound guidance and was unable to get an IV. As such I changed her meds to IM and ordered a d-dimer and a noncontrast belly CT. The d-dimer was high, as such I placed a central line to allow us to do a CT Angio of the chest. That was negative for PE, but did demonstrate a pneumonia that was occult on x- ray for which she was treated with Rocephin here and Cefdinir/doxycycline going home. Departure - Departure Disposition: Home, Self Care Clinical Impression: Abdominal pain Pneumonia Qualifiers: Pneumonia type: due to unspecified organism Laterality: right Lung location: upper lobe of lung Qualified Code(s): J18.1 - Lobar pneumonia, unspecified organism Ovarian cyst Qualifiers: Laterality: left Qualified Code(s): N83.202 - Unspecified ovarian cyst, left side Condition: Good Record reviewed to determine appropriate education?: Yes Instructions: Pneumonia Dc Prescriptions: Cefdinir 300 mg PO BID #20 capsule Doxycycline Hyclate 100 mg PO BID #20 capsule Fluconazole [Diflucan] 150 mg PO ONCE PRN #1 tablet PRN Reason: yeast infection Morphine Ir [Ms Ir] 15 mg PO Q6H PRN #15 tablet PRN Reason: Pain Ondansetron Odt [Zofran] 4 mg TL Q6H PRN #10 tablet PRN Reason: Nausea / Vomiting Comments: Imaging today demonstrates a stable left ovarian cyst, you should follow-up with your web publisher regarding this. You have pneumonia in the right upper lobe. No evidence of bowel obstruction or pulmonary embolism. Call your doctor to arrange a follow-up appointment, make the next available appointment. In the interim, return anytime if worse or if new symptoms develop. Discharge Date/Time: 07/18/19 17:49
[2019-07-18] MEDS ORDERED: IOVERSOL 320 100 ML VIAL IVP ONE ×3 (12:55→15:58)
[2019-07-18 12:57] LABS: BILIRUBIN,TOTAL 0.6 mg/dL (0.2-1.0); CREATININE 0.8 mg/dL (0.4-1.0); TOTAL PROTEIN 7.9 g/dL (6.7-8.2)
[2019-07-18 12:58] LABS: BILIRUBIN,URINE NEGATIVE (NEGATIVE); GLUCOSE, URINE (UA) NEGATIVE (NEGATIVE); KETONES,URINE (UA) NEGATIVE (NEGATIVE); LEUKOCYTE ESTERASE, URINE NEGATIVE (NEGATIVE); NITRITE,URINE NEGATIVE (NEGATIVE); OCCULT BLOOD,URINE TRACE-INTA (NEGATIVE); PH,URINE 5.5 PH (5.0-7.5); PROTEIN,URINE NEGATIVE (NEGATIVE); UROBILINOGEN,URINE 0.2 (NORMAL) E.U./dL (NORMAL)
[2019-07-18 13:00] LABS: CLARITY,URINE CLEAR (CLEAR); HCG UR QUAL NEGATIVE
--- NOTE | 2019-07-18 13:24 | XRAY Report ---
Reason: cough fever Procedure Date: 07/18/2019 Accession Number: [id number] / [id number] Procedure: XR - Chest 2 View X-Ray CPT Code: 46565 FULL RESULT: EXAM: CHEST RADIOGRAPHY EXAM DATE: 07/18/2019 12:27 PM. CLINICAL HISTORY: Cough fever. COMPARISON: CHEST 2 VIEW PA/LAT 02/21/2016 3:37 AM. TECHNIQUE: 2 views. FINDINGS: Lungs/Pleura: No focal opacities evident. No pleural effusion. No pneumothorax. Normal volumes. Mediastinum: Heart and mediastinal contours are unremarkable. Other: None. IMPRESSION: No acute intrathoracic plain film abnormality. RAD[facility]
[2019-07-18] MEDS ORDERED: HYDROmorphone 1 MG/ML CARPUJECT IM STA (13:45)
[2019-07-18] MEDS ORDERED: ONDANSETRON 4 MG/2 ML VIAL IM STA (13:45)
[2019-07-18] MEDS ORDERED: KETOROLAC 30 MG/ML VIAL IVP STA (15:21)
--- NOTE | 2019-07-18 15:35 | CT Report ---
Reason: abd p[ain Procedure Date: 07/18/2019 Accession Number: [id number] / [id number] Procedure: CT - Abdomen/Pelvis WO CPT Code: FULL RESULT: EXAM: CT ABDOMEN AND PELVIS (CT KUB) EXAM DATE: 07/18/2019 02:28 PM. CLINICAL HISTORY: Abdominal pain. The patient has a history of Crohn disease. COMPARISONS: CT ABDOMEN/PELVIS W/ 12/29/2015 7:55 PM. TECHNIQUE: Routine axial helical CT imaging was performed through the abdomen and pelvis without IV contrast. Reconstructions: Coronal and sagittal. In accordance with CT protocol optimization, one or more of the following dose reduction techniques were utilized for this exam: automated exposure control, adjustment of mA and/or KV based on patient size, or use of iterative reconstructive technique. FINDINGS: Lung Bases: Patchy opacity in the medial segment of the right middle lobe, nonspecific. The lung bases otherwise clear. The heart size is normal. No pleural or pericardial effusion. Right Kidney/Ureter: No stones, hydronephrosis, or hydroureter. No perinephric fat stranding. Left Kidney/Ureter: No stones, hydronephrosis, or hydroureter. No perinephric fat stranding. Other Solid Organs: Noncontrast images of the solid organs are grossly unremarkable. Gallbladder/Bile Ducts: Unremarkable. Peritoneal Cavity: No free fluid, free air or candace adenopathy. Postsurgical changes involving the cecum and terminal ileum, most consistent with resection of the terminal ileum and cecum, with ileocolic anastomosis. No local inflammatory changes. Pelvic Organs: No bladder stones or wall thickening. Left ovarian cystic lesion measuring 2.7 cm in diameter, identified on prior pelvic sonography on 06/28/2019. Noncontrast images of the remaining visualized pelvic organs are unremarkable. Vasculature: Unremarkable. Other: Post surgical changes in the anterior abdominal and at her pelvic wall soft tissues. Multilevel thoracic spondylosis. IMPRESSION: 1. Surgical absence of the terminal ileum and cecum, with ileocolic anastomosis. 2. No inflammatory changes in the small or large bowel. No mesenteric edema, free air, free fluid or abscess. 3. Left ovarian cystic lesion measuring 2.7 cm in diameter, unchanged when compared with the prior pelvic ultrasound performed on 06/28/2019. RADIA
[2019-07-18] MEDS ORDERED: cefTRIAXone 1 GM in SODIUM CHLORIDE 0.9% MINIBAG 100 ML IV STA (16:09)
--- NOTE | 2019-07-18 16:21 | CT Report ---
Reason: chest pain Procedure Date: 07/18/2019 Accession Number: [id number] / [id number] Procedure: CT - ANGIO CHEST W/WO CPT Code: FULL RESULT: EXAM: CT ANGIOGRAM CHEST EXAM DATE: 07/18/2019 03:58 PM. CLINICAL HISTORY: Chest pain. COMPARISON: CHEST ANGIO 09/24/2016 5:05 PM CHEST 2 VIEW 07/18/2019 12:18 PM. TECHNIQUE: Routine helical imaging was performed through the chest in the pulmonary arterial phase. IV Contrast: OPTI 320 80ML. Reconstructions: Coronal 3-D MIP reconstructions.Sagittal and coronal. In accordance with CT protocol optimization, one or more of the following dose reduction techniques were utilized for this exam: automated exposure control, adjustment of mA and/or KV based on patient size, or use of iterative reconstructive technique. FINDINGS: Pulmonary Arteries: Diagnostic quality: Adequate through the segmental arteries. No evidence for acute or chronic pulmonary emboli. RV/LV is within normal limits. There is no interventricular septal bowing. There is no reflux of contrast material in the IVC. Lungs/Pleura: There is tree-in-bud nodularity within the right upper lobe. There is no evidence of pleural effusion. No pneumothorax. Mediastinum: There are no enlarged axillary, supraclavicular, mediastinal, or hilar lymph nodes. Heart size is within normal limits. Thoracic Aorta: Unremarkable. Upper Abdomen: Unremarkable. Other: None. IMPRESSION: 1. No evidence of acute pulmonary embolism. 2. No aortic dissection. 3. There is tree-in-bud nodularity within the right upper lobe. This is suspicious for endobronchial infection. 4. There is no evidence of pneumothorax. RADIA
[2019-07-18] MEDS ORDERED: DOXYCYCLINE 100 MG TABLET PO STA (16:24)
[2019-07-18 16:55] VITALS: BP 107/74
== END 2019-07-18 17:49 | disposition home or self-care (01) ==
LOC: ED 10:04
DX: J18.9 Pneumonia, unspecified organism (principal); N83.202 Unspecified ovarian cyst, left side; R79.89 Other specified abnormal findings of blood chemistry; R00.0 Tachycardia, unspecified; R10.10 Upper abdominal pain, unspecified; R11.2 Nausea with vomiting, unspecified; Z87.19 Personal history of other diseases of the digestive system; Z90.49 Acquired absence of other specified parts of digestive tract; M06.9 Rheumatoid arthritis, unspecified
CPT/HCPCS: 36415; 36556; 71046; 71275; 74176; 80053; 81003; 81025; 83690; 85025; 85379; 93005; 96365; 96375; 96376; 99284; A9270; J1170; Q9967; 81001; 87086

== ENCOUNTER 2019-10-04 09:23 | Outpatient (CLI) | payer BC ==
--- NOTE | 2019-10-04 11:07 | Ultrasound Report ---
Reason: UTERINE ADNEXA CYST, HX OF OVARIAN CYST Procedure Date: 10/04/2019 Accession Number: [id number] / [id number] Procedure: US - Pelvic w/Transvaginal CPT Code: Final Report FULL RESULT: EXAM: PELVIC ULTRASOUND EXAM DATE: 10/04/2019 10:21 AM. CLINICAL HISTORY: Uterine adnexa cyst, history of ovarian cyst. COMPARISON: PELVIC W/TRANSVAGINAL 10/18/2018 7:49 PM ABDOMEN/PELVIS W/O 07/18/2019 2:23 PM. TECHNIQUE: Realtime transabdominal pelvic scan performed to identify the uterus and adnexa and as an overview of other pelvic structures, followed by transvaginal scan to provide greater detail of the uterus and adnexa, with static image documentation. FINDINGS: Uterus: 6.8 x 3.2 x 4.1 cm, volume 47 cc. Anteverted position. Normal overall size and echotexture. Masses: None. Endometrium: 4 mm. Normal. Cervix: Unremarkable. Right Ovary: 2.8 x 1.6 x 1.5 cm, volume 3.5 cc. Normal echotexture and blood flow. Resolution of previously seen hemorrhagic cyst. Left Ovary: 3.7 x 2.0 x 3.2 cm, volume 12.4 cc. Redemonstration of a 2.4 x 1.8 x 2.1 cm adnexal lesion which demonstrates a isoechoic solid-appearing relatively homogenous background with a few heterogeneous hyperechoic foci, not cystic appearance on today's exam. No internal vascularity is seen by color Doppler. Free Fluid: None. Other: None. IMPRESSION: Persistent left ovarian lesion, solid-appearing up to 2.4 cm in size on today's exam, indeterminate. Interval resolution of previously seen hemorrhagic right adnexal cyst. RADIA
== END 2019-10-04 09:24 | disposition home or self-care (01) ==
LOC: DI 09:23
PROVIDERS: ATTEND Obstetrics & Gynecology
DX: N83.9 Noninflammatory disorder of ovary, fallopian tube and broad ligament, unspecified (principal); Z87.42 Personal history of other diseases of the female genital tract
CPT/HCPCS: 76830; 76856

== ENCOUNTER 2020-02-01 16:42 | Outpatient (CLI) | payer BC, OTHER ==
--- NOTE | 2020-02-02 10:09 | XRAY Report ---
Reason: ABDOMINAL DISTENSION, CROHNS DISEASE Procedure Date: 02/01/2020 Accession Number: [id number] / [id number] Procedure: XR - Abdomen 2 View X-Ray CPT Code: 65576 Final Report FULL RESULT: EXAM: ABDOMEN RADIOGRAPHY EXAM DATE: 02/01/2020 05:19 PM. CLINICAL HISTORY: ABDOMINAL DISTENSION, CROHNS DISEASE. Abdominal distention for 2 weeks. COMPARISON: ABDOMEN 1 VIEW 12/04/2014 1:19 PM ABDOMEN/PELVIS W/O 07/18/2019 2:23 PM. TECHNIQUE: 2 views. FINDINGS: Lung Bases: Unremarkable. Bowel Gas Pattern: Within normal limits. No dilated loops or abnormal fluid levels. Free Air: None. Other: None. IMPRESSION: Unremarkable 2-view abdomen x-ray. No evidence of obstruction. RADIA
== END 2020-02-01 16:43 | disposition home or self-care (01) ==
LOC: DI 16:42
PROVIDERS: ATTEND Internal Medicine Gastroenterology
DX: R14.0 Abdominal distension (gaseous) (principal); K50.819 Crohn's disease of both small and large intestine with unspecified complications; N83.292 Other ovarian cyst, left side
CPT/HCPCS: 74019; 76830; 76856

== ENCOUNTER 2020-02-01 16:45 | Outpatient (CLI) | payer BC, OTHER ==
--- NOTE | 2020-02-03 00:52 | Ultrasound Report ---
Reason: CYST OF UTERINE ADNEXA Procedure Date: 02/01/2020 Accession Number: [id number] / [id number] Procedure: US - Pelvic w/Transvaginal CPT Code: Final Report FULL RESULT: EXAM: PELVIC ULTRASOUND EXAM DATE: 02/01/2020 06:30 PM. CLINICAL HISTORY: Follow-up left ovarian cyst. 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 TECHNIQUE: Realtime transabdominal pelvic scan performed to identify the uterus and adnexa and as an overview of other pelvic structures, followed by transvaginal scan to provide greater detail of the uterus and adnexa, with static image documentation. FINDINGS: Uterus: 7.1 x 3.2 x 4.1 cm, volume 49.1 cc. Anteverted position. Normal overall size and echotexture. Masses: None. Endometrium: 3 mm. Normal. Cervix: Unremarkable. Right Ovary: 2.4 x 2.1 x 2.6 cm, volume 6.6 cc. Dominant follicle is present measuring 1.2 cm. Normal echotexture and blood flow. Left Ovary: 2.9 x 2.2 x 2.4 cm, volume 8 cc. Complex cyst containing low-level echoes and echogenic foci, measuring 2.0 x 1.5 x 2.1 cm, previously 2.4 x 1.8 x 2.1 cm. Free Fluid: None. Other: None. IMPRESSION: 1. Persistent complex cystic lesion in left ovary measuring 2.0 x 1.5 x 2.1 cm. Previously seen lesion measured 2.4 x 1.8 x 2.1 cm. This could represent hemorrhagic cyst or endometrioma although other etiologies are not excluded. Recommend follow-up ultrasound in 1-2 cycles to assess for further change or resolution. 2. Otherwise unremarkable pelvic ultrasound. [facility]
== END 2020-02-01 16:46 | disposition home or self-care (01) ==
LOC: DI 16:45
PROVIDERS: ATTEND Obstetrics & Gynecology
DX: N83.292 Other ovarian cyst, left side (principal)
CPT/HCPCS: 76830; 76856

== ENCOUNTER 2020-04-17 14:28 | Emergency (ER) | payer BC, OTHER ==
[2020-04-17 14:43] LABS: BILIRUBIN,URINE NEGATIVE (NEGATIVE); GLUCOSE, URINE (UA) NEGATIVE (NEGATIVE); KETONES,URINE (UA) NEGATIVE (NEGATIVE); LEUKOCYTE ESTERASE, URINE SMALL (NEGATIVE); NITRITE,URINE NEGATIVE (NEGATIVE); OCCULT BLOOD,URINE NEGATIVE (NEGATIVE); PH,URINE 6.5 PH (5.0-7.5); PROTEIN,URINE NEGATIVE (NEGATIVE); UROBILINOGEN,URINE 0.2 (NORMAL) E.U./dL (NORMAL)
[2020-04-17 14:45] LABS: CLARITY,URINE HAZY (CLEAR); HCG UR QUAL NEGATIVE
[2020-04-17 14:51] LABS: BACTERIA,URINE Few /HPF (None Seen); RBC,URINE 0-5 /HPF (0-5); SQUAMOUS EPITHELIAL CELL,UR MANY Squamous (<= Few)
--- NOTE | 2020-04-17 14:51 | ED Physician Documentation ---
PD HPI ABD PAIN - Stated complaint Stated Complaint: RT SIDE ABD PAIN - Chief complaint Chief Complaint: Abd Pain - History obtained from History obtained from: Patient - History of Present Illness Timing - duration: Days (3) Location: RLQ Improved by: Vomiting Worsened by: Moving, Position Associated symptoms: Nausea, Vomiting, Diarrhea. No: Fever - Additional information Additional information: 29-year-old female presents the emergency department for evaluation of acute abdominal pain. Patient reports that right now the pain is located in her right lower quadrant. She does not have a history of Crohn's disease and had a small bowel obstruction which was resected in 2008. Patient reports that 3 days ago she began to have abdominal cramping and vomiting but she was not having any focal pain until this a.m. She denies any fevers, bloody stools or urinary symptoms. Her Crohn's is well managed on Entyvio injections every month. She reports that she is in remission. She does state that she has diarrhea nearly every day but her GI doctor does not feel this is related to the Crohn's Review of Systems Constitutional: denies: Fever, Chills Cardiac: denies: Chest pain / pressure, Palpitations Respiratory: denies: Dyspnea, Cough GI: reports: Abdominal Pain, Nausea, Vomiting, Diarrhea. 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 HEENT: None Psych: None Musculoskeletal: Rheumatoid arthritis Derm: None - Past Surgical History Past Surgical History: Yes Ortho: Other - Present Medications Home Medications: Ambulatory Orders Medication Instructions Recorded Confirmed Certolizumab [Cimzia] 400 mg SUBQ Q28D 10/11/17 10/12/17 Minocycline HCl 100 mg PO QPM 10/11/17 10/12/17 Melatonin 20 mg PO QPM 10/12/17 10/12/17 Naproxen 500 mg PO BID #20 tablet 09/04/18 Oxycodone HCl/Acetaminophen 1 each PO Q6H PRN #14 tablet 09/04/18 [Percocet 5-325 mg Tablet] Cefdinir 300 mg PO BID #20 capsule 07/18/19 Doxycycline Hyclate 100 mg PO BID #20 capsule 07/18/19 Fluconazole [Diflucan] 150 mg PO ONCE PRN #1 tablet 07/18/19 Morphine Ir [Ms Ir] 15 mg PO Q6H PRN #15 tablet 07/18/19 Ondansetron Odt [Zofran] 4 mg TL Q6H PRN #10 tablet 07/18/19 Cephalexin [Keflex] 500 mg PO BID #14 capsule 04/17/20 Fluconazole [Diflucan] 200 mg PO ONCE #1 tablet 04/17/20 - Allergies Allergies/Adverse Reactions: Allergies Allergy/AdvReac Type Severity Reaction Status Date / Time Sulfa (Sulfonamide Allergy Unknown Rash Verified 07/18/19 10:07 Antibiotics) hydrocodone bitartrate * AdvReac Unknown Itching Verified 07/18/19 10:07 [From Vicodin] - Social History Does the pt smoke?: No Smoking Status: Never smoker Does the pt drink ETOH?: No Does the pt have substance abuse?: No - Immunizations Immunizations are current?: Yes - POLST Patient has POLST: No PD ED PE NORMAL - General General: Alert and oriented X 3, No acute distress, Well developed/nourished - HEENT HEENT: PERRL, EOMI - Cardiac Cardiac: RRR, No murmur - Respiratory Respiratory: No respiratory distress - Abdomen Abdomen: Other (focl RLQ tenderness without rebound or guarding. 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, No motor deficit Results - Vitals Vitals: Vital Signs - 24 hr 04/17/20 04/17/20 14:38 15:46 Temperature 37.3 C Heart Rate 96 68 Respiratory 18 20 Rate Blood Pressure 130/81 H 104/46 L O2 Saturation 98 99 Oxygen O2 Source Room air - Labs Labs: Laboratory Tests 04/17/20 04/17/20 04/17/20 14:30 15:14 15:14 WBC 6.5 RBC 3.95 L Hgb 12.5 Hct 36.9 L MCV 93.4 MCH 31.6 H MCHC 33.9 RDW 12.6 Plt Count 219 MPV 9.5 Neut # (Auto) 3.6 Lymph # (Auto) 2.3 Ramsey # (Auto) 0.5 Eos # (Auto) 0.1 Baso # (Auto) 0.0 Absolute Nucleated RBC 0.00 Nucleated RBC % 0.0 Sodium 138 Potassium 3.4 L Chloride 105 Carbon Dioxide 26 Anion Gap 7.0 BUN 15 Creatinine 1.0 Estimated GFR (MDRD) 66 L Glucose 98 Calcium 8.9 Total Bilirubin 0.6 AST 19 ALT 17 Alkaline Phosphatase 19 L Total Protein 7.4 Albumin 3.7 Globulin 3.7 Albumin/Globulin Ratio 1.0 Lipase 38 Urine Color YELLOW Urine Clarity HAZY Urine pH 6.5 Ur Specific Pegram <=1.005 Urine Protein NEGATIVE Urine Glucose (UA) NEGATIVE Urine Ketones NEGATIVE Urine Occult Blood NEGATIVE Urine Nitrite NEGATIVE Urine Bilirubin NEGATIVE Urine Urobilinogen 0.2 (NORMAL) Ur Leukocyte Esterase SMALL H Urine RBC 0-5 Urine WBC 6-10 H Ur Squamous Epith Cells MANY Squamous H Urine Bacteria Few Ur Microscopic Review INDICATED Urine Culture Comments NOT INDICATED Urine HCG, Qual NEGATIVE - Rads (name of study) CT ABd Radiology: Final report received (No acute inflammatory process within the abdomen or pelvis. No significant changes from previous study. Prior right- sided abdominal surgery with intact ilio colic anastomosis. No bowel obstructionLeft ovarian cystic lesion measures 2.8 cm in size stable compared to previous study) PD MEDICAL DECISION MAKING - ED course Complexity details: reviewed results, re-evaluated patient, d/w patient ED course: 21-year-old female with a history of Crohn's disease and previous small bowel obstruction presents to the emergency department with acute periumbilical pain that radiated to the right lower quadrant. Concern for acute appendicitis. - On exam she did not have of guarding or rebound. But the history and timing was suggestive of an acute appendectomy we proceeded with CT scan. No findings consistent with acute appendicitis. No findings to suggest a small bowel obstruction. anastamosis site of SBO intact - In review of her urine she does have moderate white blood cell count and a few bacteria,though she denies any urinary symptoms. At this time I feel that her symptoms are likely due to an occult urinary tract infection. We will give her 1 g of ceftriaxone here in the emergency department given the late hour the day and prescribe her Keflex on discharge. There is no leukocytosis, fever or CVA tenderness my suspicion for asending urinary tract infection or pyelonephritis is low. She is to continue close follow-up with her primary care doctor emergent return precautions discussed for fevers, worsening pain, uncontrolled vomiting. Departure - Departure Disposition: 01 Home, Self Care Clinical Impression: Cystitis Abdominal pain Qualifiers: Abdominal location: right lower quadrant Qualified Code(s): R10.31 - Right lower quadrant pain Condition: Stable Instructions: Abdominal Pain Follow-Up: Krista Hernández PA [Primary Care Provider] - Prescriptions: Fluconazole [Diflucan] 200 mg PO ONCE #1 tablet Cephalexin [Keflex] 500 mg PO BID #14 capsule Comments: Sharon I hope that you feel better soon. The CT scan does not show any signs of a small bowel obstruction or appendicitis. The anastomosis site from your bowel obstruction is intact and not leaking. However when I review your urine you have a urinary tract infection that may simply be the cause of the symptoms. We have given you a one-time dose of ceftriaxone here in the emergency department and you are to fill the prescription for Keflex and begin taking tomorrow as directed. I would like you to schedule close follow-up with your primary care doctor to discuss this emergency department visit. If your pain is worsening, you have high fevers, uncontrolled vomiting then please return for a second evaluation
[2020-04-17] MEDS ORDERED: IOVERSOL 320 100 ML VIAL IVP ONE ×2 (15:05→17:11)
[2020-04-17] MEDS ORDERED: ONDANSETRON 4 MG/2 ML VIAL IVP STA (15:07)
[2020-04-17] MEDS ORDERED: HYDROmorphone 1 MG/ML CARPUJECT IVP STA ×2 (15:07→16:13)
[2020-04-17 15:29] LABS: BASOPHILS % (AUTO) 0.5 %; EOSINOPHILS # (AUTO) 0.1 10^3/uL (0.0-0.7); EOSINOPHILS % (AUTO) 1.1 %; HGB - HEMOGLOBIN 12.5 g/dL (12.0-16.0); LYMPHOCYTES # (AUTO) 2.3 10^3/uL (1.5-3.5); LYMPHOCYTES % (AUTO) 35.8 %; MEAN CORPUSCULAR HEMOGLOBIN 31.6 pg (27.0-31.0); MEAN CORPUSCULAR HGB CONC 33.9 g/dL (32.0-36.0); MEAN CORPUSCULAR VOLUME 93.4 fL (81.0-99.0); MEAN PLATELET VOLUME 9.5 fL (7.9-10.8); MONOCYTES # (AUTO) 0.5 10^3/uL (0.0-1.0); MONOCYTES % (AUTO) 7.3 %; NEUTROPHILS # (AUTO) 3.6 10^3/uL (1.5-6.6); NEUTROPHILS % (AUTO) 55.1 %; PLT - PLATELET COUNT 219 10^3/uL (130-450); RED BLOOD COUNT 3.95 10^6/uL (4.20-5.40); RED CELL DISTRIBUTION WIDTH 12.6 % (12.0-15.0); WHITE BLOOD COUNT 6.5 x10^3/uL (4.8-10.8)
[2020-04-17 15:42] LABS: ALBUMIN 3.7 g/dL (3.2-5.5); BILIRUBIN,TOTAL 0.6 mg/dL (0.2-1.0); CALCIUM 8.9 mg/dL (8.5-10.3); TOTAL PROTEIN 7.4 g/dL (6.7-8.2)
--- NOTE | 2020-04-17 16:34 | CT Report ---
PROCEDURE: Abdomen/Pelvis W INDICATIONS: RLQ abdominal pain; hx of sbo, crohns TECHNIQUE: After the administration of oral and intravenous contrast, 5 mm thick sections acquired from the diap hragms to the symphysis. 5 mm thick coronal and sagittal reformats were acquired. For radiation dos e reduction, the following was used: automated exposure control, adjustment of mA and/or kV accordin g to patient size. COMPARISON: 07/18/2019. FINDINGS: Image quality: Excellent. ABDOMEN: Lung bases: Bibasilar dependent atelectasis is seen. Heart size is normal. Solid organs: Liver and spleen are normal in size and enhancement. Gallbladder is within normal bradford its Biliary system is non dilated. Pancreas enhances normally. No adrenal nodules. Kidneys demons trate normal size and enhancement, without hydronephrosis. Peritoneum and bowel: Again noted are postsurgical changes in right side of abdomen with surgical abs ence of terminal ileum and cecum. Ileocolic anastomosis is seen with grossly intact suture line. No a bnormal bowel wall thickening. No bowel obstruction. No free fluid or free air. Nodes and vessels: No retroperitoneal or mesenteric adenopathy by size criteria. Aorta and inferior vena cava are normal in size. Miscellaneous: No ventral hernias. PELVIS: Genitourinary: Bladder wall thickness is normal. Miscellaneous: No inguinal hernias or adenopathy. Cystic lesion in left ovary is again seen measures 2.8 x 2.8 cm in size slightly increased in size from previous study. Bones: No suspicious bony lesions. No vertebral body compression fractures. IMPRESSION: 1. No acute inflammatory process within the abdomen or pelvis. No significant changes from previous s tudy. 2. Prior right-sided abdominal surgery with intact ileocolic anastomosis. No bowel obstruction. No ab normal bowel wall thickening. No free fluid or free air. 3. Left ovarian cystic lesion measures 2.8 cm in size compared to 2.7 cm on previous study. Reviewed by: Reagan Cárdenas MD on 04/17/2020 4:33 PM PDT Approved by: Reagan Cárdenas MD on 04/17/2020 4:33 PM PDT Station ID: [id number]
[2020-04-17] MEDS ORDERED: cefTRIAXone 1 GM in SODIUM CHLORIDE 0.9% MINIBAG 100 ML IV STA (16:46)
[2020-04-17 16:55] VITALS: BP 132/87
[2020-04-17] MEDS ORDERED: ONDANSETRON ODT 4 MG TABLET TL STA ×2 (17:02→17:44)
== END 2020-04-17 17:55 | disposition home or self-care (01) ==
LOC: ED 14:28
DX: N30.90 Cystitis, unspecified without hematuria (principal); N83.202 Unspecified ovarian cyst, left side; K50.90 Crohn's disease, unspecified, without complications; Z87.19 Personal history of other diseases of the digestive system; Z98.890 Other specified postprocedural states
CPT/HCPCS: 36415; 74177; 80053; 81001; 81025; 83690; 85025; 96365; 96375; 96376; 99284; J1170; Q0162; Q9967; 81003; 87086

== ENCOUNTER 2020-11-04 08:00 | Outpatient (CLI) | payer OTHER ==
[2020-11-05 22:11] LABS: TRICHOMONAS VAGINALIS DNA NEGATIVE (NEGATIVE)
== END 2020-11-04 23:59 | disposition home or self-care (01) ==
LOC: LAB.R 08:00
PROVIDERS: ATTEND Obstetrics & Gynecology
DX: Z11.3 Encounter for screening for infections with a predominantly sexual mode of transmission (principal)
CPT/HCPCS: 87491; 87591; 87661

== ENCOUNTER 2020-11-12 07:00 | Outpatient (CLI) | payer OTHER | END 2020-11-12 23:59 | disposition home or self-care (01) | LOC: LAB.S 07:00 | PROVIDERS: ATTEND Physician Assistant | DX: R07.0 Pain in throat (principal); J34.89 Other specified disorders of nose and nasal sinuses; Z20.822 Contact with and (suspected) exposure to COVID-19 ==

== ENCOUNTER 2021-08-20 19:28 | Outpatient (CLI) | payer OTHER ==
--- NOTE | 2021-08-21 11:28 | Ultrasound Report ---
PROCEDURE: Pelvic w/Transvaginal INDICATIONS: HISTORY OF OVARIAN CYST TECHNIQUE: Real-time scanning was performed of the pelvic organs, with image documentation. Additional endovagi nal scanning was necessary due to incomplete visualization of the adnexal and endometrial structures by transabdominal scanning. COMPARISON: Previous pelvic ultrasound dated 02/01/[address] of abdomen and pelvis dated 04/17/2020. FINDINGS: Uterus: Uterus is normal in size at 7 x 3.7 x 4.9 cm. Myometrium is homogeneous in echotexture. The endometrium measures 4.3 mm in combined thickness. No endometrial mass or fluid. Ovaries: Right ovary measures 2.7 x 1 x 1.6 cm in size with a volume of 2.3 cc. Left ovary measures 4.1 x 2.3 x 3 cm in size with a volume of 15 cc. Multiple left ovarian cysts are seen. A complex appe aring cyst is seen in left ovary measures 1.7 x 1.4 x 0.7 cm in size. A partially collapsed left ovar hetal cyst measures 1.8 x 1.7 cm is also noted. Mild to moderate amount of free fluid is seen in pelvis and left adnexa. IMPRESSION: 1. Multiple left ovarian cysts with suggestion of ruptured ovarian cyst in left ovary as above. 2. Mild to moderate amount of free fluid in pelvis and left adnexa. No right ovarian cyst is seen on the current study. 3. Normal-appearing uterus and endometrium. Reviewed by: Reagan Cárdenas MD on 08/21/2021 11:26 AM PST Approved by: Reagan Cárdenas MD on 08/21/2021 11:26 AM PST Station ID: [id number]
== END 2021-08-20 19:29 | disposition home or self-care (01) ==
LOC: DI 19:28
PROVIDERS: ATTEND Obstetrics & Gynecology
DX: N83.202 Unspecified ovarian cyst, left side (principal)

== ENCOUNTER 2021-08-31 09:57 | Outpatient (CLI) | payer OTHER ==
[2021-08-31 14:13] LABS: BASOPHILS % (AUTO) 0.7 %; EOSINOPHILS # (AUTO) 0.1 10^3/uL (0.0-0.7); EOSINOPHILS % (AUTO) 2.2 %; HCT - HEMATOCRIT 39.1 % (37.0-47.0); LYMPHOCYTES # (AUTO) 1.5 10^3/uL (1.5-3.5); LYMPHOCYTES % (AUTO) 34.9 %; MEAN CORPUSCULAR HGB CONC 33.2 g/dL (32.0-36.0); MEAN CORPUSCULAR VOLUME 93.1 fL (81.0-99.0); MEAN PLATELET VOLUME 10.2 fL (7.9-10.8); MONOCYTES # (AUTO) 0.3 10^3/uL (0.0-1.0); MONOCYTES % (AUTO) 6.3 %; NEUTROPHILS # (AUTO) 2.3 10^3/uL (1.5-6.6); NEUTROPHILS % (AUTO) 55.9 %; PLT - PLATELET COUNT 237 10^3/uL (130-450); RED CELL DISTRIBUTION WIDTH 12.7 % (12.0-15.0); WHITE BLOOD COUNT 4.2 x10^3/uL (4.8-10.8)
[2021-08-31 15:48] LABS: ALBUMIN 3.8 g/dL (3.2-5.5); ALBUMIN/GLOBULIN RATIO 1.1 (1.0-2.2); BILIRUBIN,TOTAL 0.7 mg/dL (0.2-1.0); CALCIUM 9.2 mg/dL (8.5-10.3); CREATININE 0.9 mg/dL (0.4-1.0); POTASSIUM 3.5 mmol/L (3.5-5.0); TOTAL PROTEIN 7.2 g/dL (6.7-8.2)
[2021-08-31 16:01] LABS: THYROID STIMULATING HORMONE 1.91 uIU/mL (0.34-5.60)
[2021-08-31 21:14] LABS: ESTIMATED AVERAGE GLUCOSE 103 mg/dL (70-100); HEMOGLOBIN A1c% 5.2 % (4.27-6.07)
== END 2021-08-31 09:58 | disposition home or self-care (01) ==
LOC: LAB.S 09:57
PROVIDERS: ATTEND Obstetrics & Gynecology
DX: K50.90 Crohn's disease, unspecified, without complications (principal); Z13.21 Encounter for screening for nutritional disorder; Z13.1 Encounter for screening for diabetes mellitus
CPT/HCPCS: 36415; 80053; 82306; 82607; 83036; 84443; 85025; 86762; 86787

== ENCOUNTER 2022-02-18 16:17 | Emergency (ER) | payer OTHER ==
--- OUTSIDE RECORDS SUMMARY | 2022-02-18 16:39 | EXTERNAL MEDICAL SUMMARY RPT | Continuity of Care Document ---
:1990 Author Organization [facility] Address [address] [place] [address] Phone Allergies No information. Encounters No information. Medications No information. Problems date description facility 20220212 vomiting, abdominal pain, [facility] 7-12wks 20220212 Vomiting of , unspecified [facility] 20220212 Other specified related [facility] conditions, first trimester 20220212 Epigastric pain [facility] 20220212 Encounter for supervision of normal [facility] , unspecified, first trimester 20220212 Abdominal Pain [facility] Results No information.
[2022-02-18] MEDS ORDERED: SODIUM CHLORIDE 0.9% 1,000 ML IV STA (16:58)
[2022-02-18] MEDS ORDERED: ONDANSETRON 4 MG/2 ML VIAL IVP STA ×2 (16:58→19:21)
--- NOTE | 2022-02-18 16:59 | ED Physician Documentation ---
PD HPI ABD PAIN - Stated complaint Stated Complaint: PREG,VOMITTING,NOT EATING - Chief complaint Chief Complaint: Abd Pain - History obtained from History obtained from: Patient - Additional information Additional information: G1, P0 at 7 weeks gestation with confirmed IUP presents with vomiting and pain in . She also has Crohn's disease "in remission." She takes Entyvio infusions every 8 weeks. Current symptoms have been going on for about a week. She was already seen at [facility] and treated and released about 5 days ago. She is unable to keep any of the antiemetics they prescribed down. 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 HEENT: None Psych: None Musculoskeletal: Rheumatoid arthritis Derm: None - Past Surgical History Past Surgical History: Yes Ortho: Other - Present Medications Home Medications: Ambulatory Orders Medication Instructions Recorded Confirmed Melatonin 20 mg PO QPM 10/12/17 10/12/17 Fluconazole [Diflucan] 150 mg PO ONCE PRN #1 tablet 07/18/19 Doxylamine Succinate/Vit B6 02/18/22 [Doxylamine-Pyridoxine 10-10 mg] Famotidine [Pepcid] 20 mg PO BID 02/18/22 02/18/22 Promethazine HCl [Promethazine HCl 02/18/22 supp] Promethazine [Phenergan] 25 mg PO Q6H PRN 02/18/22 02/18/22 Sucralfate [Carafate] 02/18/22 - Allergies Allergies/Adverse Reactions: Allergies Allergy/AdvReac Type Severity Reaction Status Date / Time Sulfa (Sulfonamide Allergy Unknown Rash Verified 02/18/22 16:29 Antibiotics) hydrocodone bitartrate * AdvReac Unknown Itching Verified 02/18/22 16:29 [From Vicodin] - Social History Does the pt smoke?: No Smoking Status: Never smoker Does the pt drink ETOH?: No Does the pt have substance abuse?: No - Immunizations Immunizations are current?: Yes - POLST Patient has POLST: No PD ED PE NORMAL - Vitals Vital signs reviewed: Yes - General General: Alert and oriented X 3, No acute distress - Abdomen Abdomen: Normal bowel sounds, Soft, Non tender - Female Female : Other (Bedside ultrasound shows single live intrauterine with heart rate of 156.) - Neuro Neuro: Alert and oriented X 3, Normal speech Results - Vitals Vitals: Vital Signs - 24 hr 02/18/22 02/18/22 02/18/22 16:25 17:23 19:35 Temperature 36.5 C Heart Rate 90 80 Respiratory 14 14 14 Rate Blood Pressure 121/90 H O2 Saturation 100 98 Oxygen O2 Source Room air - Labs Labs: Laboratory Tests 02/18/22 02/18/22 02/18/22 17:10 17:10 17:34 WBC 10.4 RBC 4.84 Hgb 15.6 Hct 44.1 MCV 91.1 MCH 32.2 H MCHC 35.4 RDW 13.1 Plt Count 288 MPV 9.5 Neut # (Auto) 8.2 H Lymph # (Auto) 1.5 [place] # (Auto) 0.6 Eos # (Auto) 0.0 Baso # (Auto) 0.0 Absolute Nucleated RBC 0.00 Nucleated RBC % 0.0 Sodium 135 Potassium 3.2 L Chloride 101 Carbon Dioxide 18 L Anion Gap 16.0 H BUN 16 Creatinine 0.7 Estimated GFR (MDRD) 98 Glucose 80 Calcium 9.4 Urine Color DARK YELLOW Urine Clarity HAZY Urine pH 6.5 Ur Specific Girard >=1.030 H Urine Protein 30 H Urine Glucose (UA) NEGATIVE Urine Ketones >=80 H Urine Occult Blood TRACE-INTA Urine Nitrite NEGATIVE Urine Bilirubin NEGATIVE Urine Urobilinogen 1 (NORMAL) Ur Leukocyte Esterase MODERATE H Urine RBC 0-5 Urine WBC 11-25 H Ur Squamous Epith Cells MANY Squamous H Urine Bacteria Many H Urine Mucus Few Strands Ur Microscopic Review INDICATED Urine Culture Comments NOT INDICATED PD MEDICAL DECISION MAKING - ED course ED course: 31-year-old woman presents with vomiting in . There is also some significant upper abdominal pain consistent with gastritis which was much better after the administration of a GI cocktail here. Benign abdominal exam and reassuring bedside ultrasound. She was feeling better after the administration of IV fluids and Zofran as well. She has meds coming tomorrow from her prior ED visit. Departure - Departure Disposition: 01 Home, Self Care Clinical Impression: Hyperemesis gravidarum Gastritis Qualifiers: Gastritis type: unspecified gastritis Chronicity: acute Gastritis bleeding: without bleeding Qualified Code(s): K29.00 - Acute gastritis without bleeding Condition: Good Record reviewed to determine appropriate education?: Yes Instructions: ED Preg Morning Sickness Comments: As discussed, it seems like at least a portion of your issue is stomach acid and I would recommend normal taking Pepcid, 20 mg twice a day for that; it is safe in . Follow-up with your OB, next available appointment. Return for new or worsening symptoms.
[2022-02-18 17:36] LABS: GLUCOSE, URINE (UA) NEGATIVE (NEGATIVE); KETONES,URINE (UA) >=80 mg/dL (NEGATIVE); LEUKOCYTE ESTERASE, URINE MODERATE (NEGATIVE); NITRITE,URINE NEGATIVE (NEGATIVE); OCCULT BLOOD,URINE TRACE-INTA (NEGATIVE); PH,URINE 6.5 PH (5.0-7.5); PROTEIN,URINE 30 mg/dL (NEGATIVE); UROBILINOGEN,URINE 1 (NORMAL) E.U./dL (NORMAL)
[2022-02-18 17:36] LABS: BASOPHILS % (AUTO) 0.3 %; EOSINOPHILS % (AUTO) 0.2 %; HCT - HEMATOCRIT 44.1 % (37.0-47.0); HGB - HEMOGLOBIN 15.6 g/dL (12.0-16.0); LYMPHOCYTES # (AUTO) 1.5 10^3/uL (1.5-3.5); LYMPHOCYTES % (AUTO) 14.6 %; MEAN CORPUSCULAR HEMOGLOBIN 32.2 pg (27.0-31.0); MEAN CORPUSCULAR HGB CONC 35.4 g/dL (32.0-36.0); MEAN CORPUSCULAR VOLUME 91.1 fL (81.0-99.0); MEAN PLATELET VOLUME 9.5 fL (7.9-10.8); MONOCYTES # (AUTO) 0.6 10^3/uL (0.0-1.0); MONOCYTES % (AUTO) 5.3 %; NEUTROPHILS # (AUTO) 8.2 10^3/uL (1.5-6.6); NEUTROPHILS % (AUTO) 79.4 %; PLT - PLATELET COUNT 288 10^3/uL (130-450); RED BLOOD COUNT 4.84 10^6/uL (4.20-5.40); RED CELL DISTRIBUTION WIDTH 13.1 % (12.0-15.0); WHITE BLOOD COUNT 10.4 x10^3/uL (4.8-10.8)
[2022-02-18 17:38] LABS: CALCIUM 9.4 mg/dL (8.5-10.3); CREATININE 0.7 mg/dL (0.4-1.0); POTASSIUM 3.2 mmol/L (3.5-5.0)
[2022-02-18 17:47] LABS: BILIRUBIN,URINE NEGATIVE (NEGATIVE); CLARITY,URINE HAZY (CLEAR); ICTOTEST,URINE NEGATIVE
[2022-02-18 17:48] LABS: BACTERIA,URINE Many /HPF (None Seen); MUCUS,URINE Few Strands; RBC,URINE 0-5 /HPF (0-5); SQUAMOUS EPITHELIAL CELL,UR MANY Squamous (<= Few)
[2022-02-18] MEDS ORDERED: POTASSIUM CHLORIDE 20 MEQ TABLET PO STA (17:52)
[2022-02-18] MEDS ORDERED: MAG HYDROX/AL HYDROX/SIMETH 30 ML UDC PO STA (17:59)
[2022-02-18] MEDS ORDERED: LIDOCAINE VISCOUS 2% 15 ML UDC MM STA (17:59)
[2022-02-18] MEDS ORDERED: FAMOTIDINE 20 MG/2 ML VIAL IVP STA (18:44)
[2022-02-18] MEDS ORDERED: ONDANSETRON ODT 4 MG Prepack 2 TL STA (19:21)
[2022-02-18 20:22] VITALS: BP 122/74
== END 2022-02-18 20:22 | disposition home or self-care (01) ==
LOC: ED 16:17
DX: O21.0 Mild hyperemesis gravidarum (principal); O99.611 Diseases of the digestive system complicating pregnancy, first trimester; Z3A.01 Less than 8 weeks gestation of pregnancy
CPT/HCPCS: 36415; 80048; 81001; 85025; 96374; 96375; 96376; 99282; 99283; A9270; 81003; 87086

== ENCOUNTER 2023-03-18 18:32 | Outpatient (CLI) | payer OTHER ==
--- NOTE | 2023-03-19 03:23 | Ultrasound Report ---
PROCEDURE: Pelvic w/Transvaginal INDICATIONS: CYST OF UTERINE ADNEXA TECHNIQUE: Real-time scanning was performed of the pelvic organs, with image documentation. Additional endovagi nal scanning was necessary due to incomplete visualization of the adnexal and endometrial structures by transabdominal scanning. COMPARISON: None. FINDINGS: Uterus: Uterus is anteverted and measures 7.8 x 4.5 x 5.2 cm. Endometrium measures up to 1.0 cm in t hickness. Ovaries: The right ovary measures 2.3 x 2.2 x 1.6 cm, with a calculated ovarian volume of 1.5 cc. T he left ovary measures 3.5 x 2 x 2.6 cm, with a calculated ovarian volume of 9.4 cc. The ovaries hav e a normal sonographic appearance. Less than 12 follicles can be seen in each ovary. No adnexal mas ses. There is a thick-walled cyst in the right ovary measuring up to 1.6 cm. In the left ovary, there is a thick-walled cyst with internal echoes measuring up to 2.3 cm. A smaller thick walled cyst cynthia ures up to 1 cm. Other: No pathologic free abdominal or pelvic fluid. IMPRESSION: 1. Complex thick-walled ovarian cysts redemonstrated. Consider follow-up in 6 weeks to demonstrate re solution or stability. Reviewed by: Ashwin Blanco MD on 03/19/2023 3:22 AM PDT Approved by: Ashwin Blanco MD on 03/19/2023 3:22 AM PDT Station ID: [id number]
== END 2023-03-18 18:33 | disposition home or self-care (01) ==
LOC: DI 18:32
PROVIDERS: ATTEND Nurse Practitioner
DX: N83.202 Unspecified ovarian cyst, left side (principal); N83.201 Unspecified ovarian cyst, right side; Z87.42 Personal history of other diseases of the female genital tract

== ENCOUNTER 2023-04-28 07:39 | Outpatient (CLI) | payer OTHER ==
--- NOTE | 2023-04-28 18:10 | Ultrasound Report ---
PROCEDURE: Pelvic w/Transvaginal INDICATIONS: PELVIC PAIN TECHNIQUE: Real-time scanning was performed of the pelvic organs, with image documentation. Additional endovagi nal scanning was necessary due to incomplete visualization of the adnexal and endometrial structures by transabdominal scanning. COMPARISON: 03/18/2023 FINDINGS: Uterus: Uterus is retroverted and and normal in size at 8.2 x 3.7 x 4.8 cm. The myometrium is homog eneous. The endometrium measures 7 mm in combined thickness. Ovaries: Right ovary measures 2.7 x 2.3 x 1.9 cm, volume 5.9 cc appears complex cyst measuring 1.7 cm , increased in size from the prior Left ovary measures at 5.3 x 4.3 x 5.1 cm, volume 7.5 cc. Additional complex focus with loculations m easures 3.8 x 3.3 cm, also increased in size. Additional 2 cm simple cyst also noted. IMPRESSION: Complex bilateral ovarian cysts, increased in size. Consider follow-up MR pelvis with contrast for fu rther evaluation Reviewed by: Carlos Beard MD on 04/28/2023 5:09 PM VASILIY Approved by: Carlos Beard MD on 04/28/2023 5:09 PM VASILIY Station ID: [id number]
== END 2023-04-28 07:40 | disposition home or self-care (01) ==
LOC: DI 07:39
PROVIDERS: ATTEND Nurse Practitioner
DX: N83.292 Other ovarian cyst, left side (principal); N83.291 Other ovarian cyst, right side

== ENCOUNTER 2023-07-02 07:41 | Outpatient (CLI) | payer OTHER ==
--- NOTE | 2023-07-02 09:00 | Ultrasound Report ---
PROCEDURE: Pelvic w/Transvaginal INDICATIONS: UTERINE CYST TECHNIQUE: Real-time scanning was performed of the pelvic organs, with image documentation. Additional endovagi nal scanning was necessary due to incomplete visualization of the adnexal and endometrial structures by transabdominal scanning. COMPARISON: Ultrasound 04/28/2023. FINDINGS: Uterus: Uterus is anteverted and normal in size at 8.0 x 3.8 x 5.6 cm. The myometrium is heterogene ous. The endometrium measures 4 mm in combined thickness. New small intramural fibroid within the m id posterior uterus measuring 0.9 x 0.9 x 0.7 cm. Ovaries: The right ovary measures 1.7 x 1.4 x 1.1 cm, with a calculated ovarian volume of 1.3 cc. T he left ovary measures 2.8 x 1.2 x 1.7 cm, with a calculated ovarian volume of 2.5 cc. The ovaries h ave a normal sonographic appearance. Less than 12 follicles can be seen in each ovary. No adnexal m asses are seen. No cystic lesions measuring greater than 3 cm. Previous cystic lesions in the bilater al ovaries have resolved. Other: No pathologic free abdominal or pelvic fluid. IMPRESSION: 1.Resolution of previously seen ovarian cystic structures. 2.New small intramural fibroid measuring 0.9 cm. Reviewed by: Richardson Rasmussen MD on 07/02/2023 8:58 AM PDT Approved by: Richardson Rasmussen MD on 07/02/2023 8:58 AM PDT Station ID: [id number]
== END 2023-07-02 07:42 | disposition home or self-care (01) ==
LOC: DI 07:41
PROVIDERS: ATTEND Nurse Practitioner
DX: Z09 Encounter for follow-up examination after completed treatment for conditions other than malignant neoplasm (principal); Z87.42 Personal history of other diseases of the female genital tract; D25.1 Intramural leiomyoma of uterus

== ENCOUNTER 2023-09-08 09:00 | Emergency (ER) | payer OTHER ==
[2023-09-08 09:20] VITALS: BP 127/83; O2SAT 100
[2023-09-08] MEDS ORDERED: oxyCODONE 5 MG TABLET PO STA (11:36)
--- NOTE | 2023-09-08 11:38 | Ultrasound Report ---
PROCEDURE: Duplex Ext Veins Right INDICATIONS: hip/thigh/knee swelling TECHNIQUE: Real-time imaging, as well as color and pulse Doppler interrogation, were performed of the lower extr emity deep veins from the inguinal ligament to the popliteal fossa. Attempted visualization of the ca lf veins was performed. COMPARISON: None. FINDINGS: The deep veins are normally compressible, and free of intraluminal thrombus. Color and pu lse Doppler demonstrate normal phasic intraluminal flow. There is normal augmentation response to di stal compression maneuver. Limited evaluation of the popliteal and calf veins secondary to body habi tus. IMPRESSION: No deep venous thrombosis of the visualized lower extremity. Reviewed by: Richardson Rasmussen MD on 09/08/2023 11:37 AM PST Approved by: Richardson Rasmussen MD on 09/08/2023 11:37 AM PST Station ID: [id number]
--- NOTE | 2023-09-08 11:38 | ED Physician Documentation ---
PD HPI LOWER EXT INJURY - Stated complaint Stated Complaint: HIP PX,SWOLLEN - Chief complaint Chief Complaint: Ext Problem - History obtained from History obtained from: Patient - Additional information Additional information: 2 days of right hip pain, getting worse. There is no specific trauma. Initially ibuprofen was helpful, no longer. It is nothing she is ever had before. No fevers. Pain radiating down towards the knee now. 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 HEENT: None Psych: None Musculoskeletal: Rheumatoid arthritis Derm: None - Past Surgical History Past Surgical History: Yes General: Bowel surgery Ortho: Other - Present Medications Home Medications: Ambulatory Orders Medication Instructions Recorded Confirmed Vedolizumab [Entyvio] 300 mg IV 05/20/22 Meloxicam [Mobic] 7.5 mg PO BID PRN #20 tablet 09/08/23 Oxycodone HCl/Acetaminophen 1 - 2 each PO Q6H PRN #14 tablet 09/08/23 [Percocet 5-325 mg Tablet] predniSONE [Deltasone] 20 mg PO [id number] #21 tab 09/08/23 - Allergies Allergies/Adverse Reactions: Allergies Allergy/AdvReac Type Severity Reaction Status Date / Time Sulfa (Sulfonamide Allergy Unknown Rash Verified 09/08/23 09:14 Antibiotics) hydrocodone bitartrate * AdvReac Unknown Itching Verified 09/08/23 09:14 [From Vicodin] - Social History Does the pt smoke?: No Smoking Status: Never smoker Does the pt drink ETOH?: No Does the pt have substance abuse?: No - Immunizations Immunizations are current?: Yes - POLST Patient has POLST: No PD ED PE NORMAL - Vitals Vital signs reviewed: Yes - General General: Alert and oriented X 3, No acute distress - Extremities Extremities: Other (Right hip is visibly normal without shingles or warmth or redness. She has mild pain with palpation of the lateral hip but more significant with internal and external rotation. No redness or swelling anywhere in the leg. Right knee is nontender.) - Neuro Neuro: Alert and oriented X 3, Normal speech Results - Vitals Vitals: Vital Signs - 24 hr 09/08/23 09:10 Temperature 36.9 C Heart Rate 87 Respiratory 20 Rate Blood Pressure 127/83 H O2 Saturation 100 Oxygen O2 Source Room air - Labs Labs: Laboratory Tests 09/08/23 11:45 Urine HCG, Qual NEGATIVE - Rads (name of study) DVT sono Relevant Findings:: Prelim report reviewed R hip XR Relevant Findings:: Final report received, EMP independent interpretation of test PD Medical Decision Making - ED course ED course: 33-year-old woman with acute right hip pain. DVT ultrasound negative. Hip x- ray showing fairly significant osteoarthritic changes of both hips especially for age. She received 5 mg of oxycodone here which was not helpful for her pain and this was followed by 60 mg of IM Toradol prior to discharge. Discussed need for follow-up and return precautions. Departure - Departure Disposition: 01 Home, Self Care Clinical Impression: Right hip pain Condition: Good Record reviewed to determine appropriate education?: Yes Instructions: Hip Osteoarthritis Follow-Up: [facility] [Provider Group] Prescriptions: predniSONE [Deltasone] 20 mg PO [id number] #21 tab Meloxicam [Mobic] 7.5 mg PO BID PRN #20 tablet PRN Reason: Pain Oxycodone HCl/Acetaminophen [Percocet 5-325 mg Tablet] 1 - 2 each PO Q6H PRN #14 tablet PRN Reason: pain Comments: As discussed, the x-ray of your hips actually shows fairly extensive arthritis especially noting her young age. Pain today could be an exacerbation of that, but would also worry about a labral issue. Follow-up with your primary care physician or one of our orthopedists, calling for the next available appointment. Until then I think the steroids, anti-inflammatories, and pain medications will be helpful and I sent the prescriptions electronically to the [facility] in [place]. Return if you develop a fever specially. Or other worsening symptoms. I am prescribing a short course of narcotic pain medication for you. These are potentially dangerous and addictive medications that should be used carefully. These medications may constipate you. Take an nuqe-pah-erabvmv stool softener (docusate) twice daily with plenty of water while taking these medications. If you go 24 hours without a bowel movement, take nrdk-let-acjuwat miralax, per package instructions. Do not drink or drive while taking these medications. If you received narcotic or sedating medications while in the emergency department, do not drive for 24 hours. Store this medication in a safe, secure place and out of reach of children. It is a violation of federal law to give or sell this medication to another person or to use in a manner other than prescribed. The ED will not refill narcotic prescriptions, including prescriptions lost or s tolen. To dispose of unwanted medications: 1. [facility]'s Office provides a drop box for medication in pill form only (no liquids) 8:00 am to 4:30 p.m. Tuesday-Tuesday in the lobby of the [facility], [address] [place] [address]. Empty pills into ziplock bag before disposal. Call [phone] for information. 2.[employer] is a free service available to all [facility] residents. Go to [email or web address] Note that many narcotic pain relievers also contain Tylenol/acetaminophen. Please ensure that your total dose of acetaminophen from all sources does not exceed 3 g (3000 mg) per day. Forms: PCP List
[2023-09-08 11:54] LABS: HCG UR QUAL NEGATIVE
--- NOTE | 2023-09-08 12:22 | XRAY Report ---
PROCEDURE: Hip w/Pelvis 2-3V RT INDICATIONS: hip pain TECHNIQUE: AP pelvis with lateral view(s) of the right hip(s). COMPARISON: None. FINDINGS: Bones: No fractures or dislocations. Moderate degenerative changes of the left and mild degenerative changes of the right hip with joint space narrowing and marginal spurring. Degenerative changes of t he pubic symphysis. No suspicious bony lesions. Soft tissues: No suspicious soft tissue calcifications or masses. IMPRESSION: Early degenerative changes of the left greater than right hips. No acute osseous epiglottis. Reviewed by: Richardson Rasmussen MD on 09/08/2023 12:20 PM PST Approved by: Richardson Rasmussen MD on 09/08/2023 12:20 PM PST Station ID: [id number]
[2023-09-08] MEDS ORDERED: KETOROLAC 60 MG/2 ML VIAL IM STA (12:30)
[2023-09-08] MEDS ORDERED: predniSONE 20 MG TABLET PO STA (12:30)
[2023-09-08] MEDS ORDERED: HYDROmorphone 1 MG/ML CARPUJECT IM STA (12:33)
[2023-09-08] MEDS ORDERED: ONDANSETRON ODT 4 MG TABLET TL STA (12:58)
== END 2023-09-08 13:12 | disposition home or self-care (01) ==
LOC: ED 09:00
DX: M25.551 Pain in right hip (principal); M06.9 Rheumatoid arthritis, unspecified
CPT/HCPCS: 73502; 81025; 93971; 96372; 99283; 99284; A9270; J1170; J7512; Q0162

== ENCOUNTER 2023-09-29 12:16 | Outpatient (CLI) | payer OTHER ==
[2023-09-29 12:59] LABS: ESTIMATED AVERAGE GLUCOSE 105 mg/dL (70-100); HEMOGLOBIN A1c% 5.3 % (4.27-6.07)
== END 2023-09-29 12:17 | disposition home or self-care (01) ==
LOC: LAB 12:16
PROVIDERS: ATTEND Nurse Practitioner
DX: R63.5 Abnormal weight gain (principal)
CPT/HCPCS: 36415; 83036; 84443

== ENCOUNTER 2023-11-25 07:53 | Outpatient (CLI) | payer OTHER ==
[~2023-11-25 07:53] MED LIST: GADOTERATE MEGLUMINE 10 MMOL/20 ML VIAL ONE; GADOTERATE MEGLUMINE 2.5 MMOL/5 ML VIAL ONE
[2023-11-25] MEDS: GADOTERATE MEGLUMINE 10 MMOL/20 ML VIAL IVP ONE (09:22)
--- NOTE | 2023-11-25 11:40 | MRI Report ---
PROCEDURE: Pelvis W/WO INDICATIONS: FEMALE PELVIC PAIN TECHNIQUE: MR images were obtained of the pelvis with and without contrast using multiple sequences a nd multiple planes. COMPARISON: Pelvic ultrasound 07/02/2023, CT 07/18/2019 FINDINGS: Image quality: Diagnostic Lower abdomen: No bowel obstruction. No ascites. Bladder: Unremarkable Reproductive organs: Nonenlarged endometrium. The junctional zone is normal thickness. Small amount p elvic free fluid is present, likely physiologic. The ovaries appear nonenlarged, with physiologic duncan earing follicles bilaterally. The cervix appears unremarkable. On precontrast T1-weighted images, no evidence of active deep pelvic endometriosis deposits. Vaginal menstrual object is seen. A questionable area of T2 hypointense signal under a centimeter, possibly corresponding to previously described sonographic intramural fibroid. No extra mural or endometrial extension. Rectum: Unremarkable Vessels and lymph nodes: No aneurysmal vessel or pathologic lymph nodes by size criteria Pelvic wall: Unremarkable Bones: No acute or suspicious osseous finding. IMPRESSION: No acute pelvic abnormality. The ovaries are not enlarged. No pathologic thickening of the junctional zone or endometrium. The cervix is unremarkable. A small amount pelvic free fluid is favored to be physiologic in this demographic. A questionable area of T2 hypointense signal measuring under a centimeter, possibly corresponding to previously described sonographic intramural fibroid. No extra mural or endometrial extension. Other findings as above. Reviewed by: Sancho Kumari MD on 11/25/2023 11:39 AM PST Approved by: Sancho Kumari MD on 11/25/2023 11:39 AM PST Station ID: [id number]
== END 2023-11-25 07:54 | disposition home or self-care (01) ==
LOC: DI 07:53
PROVIDERS: ATTEND Nurse Practitioner
DX: R10.2 Pelvic and perineal pain (principal)
CPT/HCPCS: 72197; A9575

== ENCOUNTER 2024-03-28 13:15 | Emergency (ER) | payer OTHER ==
--- NOTE | 2024-03-28 13:29 | ED Physician Documentation ---
PD HPI NVD - Stated complaint Stated Complaint: V, 6-8 WEEKS - Chief complaint Chief Complaint: Abd Pain - History obtained from History obtained from: Patient - History of Present Illness Timing - onset: How many days ago (4) Timing - duration: Days (4) Timing - details: Gradual onset, Still present (increased nasuea to not even keeping fluid down now.) Associated symptoms: Abdominal pain (diffuse cramping) Contributing factors: No: Sick contact, Bad food Similar symptoms before: Has not had sx before Review of Systems Constitutional: denies: Fever, Chills Nose: denies: Rhinorrhea / runny nose, Congestion Throat: denies: Sore throat Respiratory: denies: Cough PD PAST MEDICAL HISTORY - Past Medical History Past Medical History: Yes Cardiovascular: None Respiratory: None Neuro: None Endocrine/Autoimmune: None GI: 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 : None HEENT: None Psych: None Musculoskeletal: Rheumatoid arthritis Derm: None - Past Surgical History Past Surgical History: Yes General: Bowel surgery Ortho: Other - Present Medications Home Medications: Ambulatory Orders Medication Instructions Recorded Confirmed Doxylamine Succinate [Unisom] 25 mg PO BID PRN #30 tablet 03/28/24 Famotidine [Pepcid] 20 mg PO DAILY #20 tablet 03/28/24 Ondansetron Odt [Zofran] 4 mg TL Q6H PRN #20 tablet 03/28/24 Pyridoxine HCl (Vitamin B6) 50 mg PO BID #40 tab 03/28/24 [Vitamin B6] dexAMETHasone [Decadron] 4 mg PO DAILY #5 tablet 03/28/24 - Allergies Allergies/Adverse Reactions: Allergies Allergy/AdvReac Type Severity Reaction Status Date / Time Sulfa (Sulfonamide Allergy Unknown Rash Verified 03/28/24 13:25 Antibiotics) hydrocodone bitartrate * AdvReac Unknown Itching Verified 03/28/24 13:25 [From Vicodin] - Social History Does the pt smoke?: No Smoking Status: Never smoker Does the pt drink ETOH?: No Does the pt have substance abuse?: No - Immunizations Immunizations are current?: Yes - POLST Patient has POLST: No PD ED PE NORMAL - Vitals Vital signs reviewed: Yes - General General: Alert and oriented X 3, Well developed/nourished - HEENT HEENT: No: Moist mucous membranes - Neck Neck: Supple, no meningeal sign, No adenopathy - Cardiac Cardiac: RRR, No murmur - Respiratory Respiratory: No respiratory distress, Clear bilaterally - Abdomen Abdomen: Soft, Non distended, Other (Tender in the mid abdomen without any percussion nor guarding tenderness. Some tenderness in the suprapubic area. No obvious uterine enlargement palpable at this early time. Right lower quadrant in particular is not tender.) Results - Vitals Vitals: Vital Signs - 24 hr 03/28/24 03/28/24 03/28/24 13:19 15:21 16:31 Temperature 36.7 C Heart Rate 93 67 70 Respiratory 17 16 18 Rate Blood Pressure 131/77 H 115/68 120/67 O2 Saturation 100 99 99 03/28/24 17:51 Temperature 37.0 C Heart Rate 73 Respiratory 20 Rate Blood Pressure 120/74 O2 Saturation 97 Oxygen O2 Source Room air - Labs Labs: Laboratory Tests 03/28/24 03/28/24 03/28/24 14:12 14:12 14:15 WBC 8.5 RBC 4.53 Hgb 13.6 Hct 41.7 MCV 92.1 MCH 30.0 MCHC 32.6 RDW 13.3 Plt Count 255 MPV 10.0 Neut # (Auto) 6.7 H Lymph # (Auto) 1.4 L [place] # (Auto) 0.4 Eos # (Auto) 0.0 Baso # (Auto) 0.0 Absolute Nucleated RBC 0.00 Nucleated RBC % 0.0 Sodium 133 L Potassium 4.0 Chloride 102 Carbon Dioxide 23 Anion Gap 8.0 BUN 15 Creatinine 0.8 Estimated GFR (MDRD) 83 L Glucose 79 Calcium 9.2 Magnesium 1.8 Total Bilirubin 0.7 AST 17 ALT 15 Alkaline Phosphatase 31 L Total Protein 7.3 Albumin 3.9 Globulin 3.4 Albumin/Globulin Ratio 1.1 Lipase 23 Beta HCG, Quant 525466.8 Urine Color ORANGE Urine Clarity HAZY Urine pH Ur Specific [place] Urine Protein Urine Glucose (UA) NEGATIVE Urine Ketones Urine Occult Blood Urine Nitrite NEGATIVE Urine Bilirubin COLOR INTERFERENCE Urine Urobilinogen Ur Leukocyte Esterase Urine RBC 0-5 Urine WBC 0-3 Ur Squamous Epith Cells MOD Squamous H Urine Bacteria Few Urine Mucus Moderate Strands Ur Microscopic Review INDICATED Urine Culture Comments NOT INDICATED PD Medical Decision Making - ED course Complexity details: reviewed results, considered differential (The patient is estimated 6 to 8 weeks with nausea and some vomiting for 4 to 5 days. No diarrhea. Increased vomiting of even fluids the past day. Feeling weak and lightheaded.), d/w patient Departure - Departure Disposition: 01 Home, Self Care Clinical Impression: Hyperemesis affecting , antepartum, Dehydration Qualifiers: Weeks of gestation: less than 8 weeks Qualified Code(s): Z3A.01 - Less than 8 weeks gestation of Condition: Stable Record reviewed to determine appropriate education?: Yes Instructions: ED Preg Morning Sickness [facility]-Up: [facility] [Provider Group] Prescriptions: dexAMETHasone [Decadron] 4 mg PO DAILY #5 tablet Famotidine [Pepcid] 20 mg PO DAILY #20 tablet Doxylamine Succinate [Unisom] 25 mg PO BID PRN #30 tablet PRN Reason: Nausea / Vomiting Pyridoxine HCl (Vitamin B6) [Vitamin B6] 50 mg PO BID #40 tab Ondansetron Odt [Zofran] 4 mg TL Q6H PRN #20 tablet PRN Reason: Nausea / Vomiting Comments: The ultrasound is looking good, you are about 7 weeks along with reassuring appearance of the fetus. Prescriptions were sent electronically to the [facility] in [place]. Small frequent fluids. [place] food initially and especially starches/carbohydrates to help with easier digestion and absorption. Electrolyte fluids. Presuming related to , common suggestions from FILLING AND PACKING SUPERVISOR would be vitamin B6 twice daily regularly. Famotidine acid reducing medicine as your stomach would likely be irritated daily for the next few weeks. Add doxylamine to 3 times daily if needed for nausea. Can also add or use Zofran/ondansetron if needed for nausea. Follow-up with FILLING AND PACKING SUPERVISOR. Forms: PCP List Discharge Date/Time: 03/28/24 17:51
[2024-03-28] MEDS: SODIUM CHLORIDE 0.9% 1,000 ML IV STA ×2 (14:22→16:30)
[2024-03-28] MEDS: ONDANSETRON 4 MG/2 ML VIAL IVP STA ×2 (14:24→16:30)
[2024-03-28 14:25] LABS: GLUCOSE, URINE (UA) NEGATIVE (NEGATIVE); NITRITE,URINE NEGATIVE (NEGATIVE)
[2024-03-28] MEDS: FAMOTIDINE 20 MG/2 ML VIAL IVP STA (14:26)
[2024-03-28 14:27] LABS: BASOPHILS % (AUTO) 0.2 %; EOSINOPHILS % (AUTO) 0.2 %; HCT - HEMATOCRIT 41.7 % (37.0-47.0); HGB - HEMOGLOBIN 13.6 g/dL (12.0-16.0); LYMPHOCYTES # (AUTO) 1.4 10^3/uL (1.5-3.5); LYMPHOCYTES % (AUTO) 16.3 %; MEAN CORPUSCULAR HGB CONC 32.6 g/dL (32.0-36.0); MEAN CORPUSCULAR VOLUME 92.1 fL (81.0-99.0); MONOCYTES # (AUTO) 0.4 10^3/uL (0.0-1.0); MONOCYTES % (AUTO) 4.5 %; NEUTROPHILS # (AUTO) 6.7 10^3/uL (1.5-6.6); NEUTROPHILS % (AUTO) 78.7 %; PLT - PLATELET COUNT 255 10^3/uL (130-450); RED BLOOD COUNT 4.53 10^6/uL (4.20-5.40); RED CELL DISTRIBUTION WIDTH 13.3 % (12.0-15.0); WHITE BLOOD COUNT 8.5 x10^3/uL (4.8-10.8)
[2024-03-28] MEDS: KETOROLAC 15 MG/ML VIAL IVP STA (14:33)
[2024-03-28] MEDS: DEXAMETHASONE 10 MG/ML VIAL IVP STA (14:33)
[2024-03-28 14:34] LABS: BILIRUBIN,URINE COLOR INTERFERENCE (NEGATIVE); CLARITY,URINE HAZY (CLEAR)
[2024-03-28 14:36] LABS: BACTERIA,URINE Few /HPF (None Seen); MUCUS,URINE Moderate Strands; RBC,URINE 0-5 /HPF (0-5); SQUAMOUS EPITHELIAL CELL,UR MOD Squamous (<= Few); WBC,URINE 0-3 /HPF (0-5)
[2024-03-28 14:40] LABS: MAGNESIUM 1.8 mg/dL (1.7-2.3)
[2024-03-28 15:12] LABS: ALBUMIN 3.9 g/dL (3.2-5.5); ALBUMIN/GLOBULIN RATIO 1.1 (1.0-2.2); BILIRUBIN,TOTAL 0.7 mg/dL (0.2-1.0); CALCIUM 9.2 mg/dL (8.5-10.3); CREATININE 0.8 mg/dL (0.6-1.3); TOTAL PROTEIN 7.3 g/dL (6.4-8.9)
--- NOTE | 2024-03-28 16:09 | ED Physician Documentation ---
ED Addendum - Addendum Addendum: 03/28/24 16:[address] Munoz at shift change pending ultrasonography. RDMS reports to me that she has a single live intrauterine at about 7 weeks along. Patient seen and examined at bedside and is feeling somewhat better but would like 1 more round of fluids and Zofran prior to discharge. Disposition: Discharged home Condition: Stable
--- NOTE | 2024-03-28 16:34 | Ultrasound Report ---
PROCEDURE: OB 1st Trimester INDICATIONS: n/v, cramps; 6-8 wk ega OUTSIDE/PRIOR DATING DATA: Last menstrual period (LMP): 02/13/2024. LMP-based estimated date of delivery (SAGE): 11/19/2024. First dating scan (date and location): Today's exam. Estimated date of delivery (SAGE) from first dating scan: 11/17/2024. TECHNIQUE: Real-time scanning was performed of the fetus and maternal pelvic organs, with image documentation. COMPARISON: None. FINDINGS: Intrauterine gestational sac present. Embryo: Present, measuring 2.6 cm, corresponding to 7 weeks 4 days Heart rate: 129 bpm. Other: No perigestational fluid collection. Measurement variability in dating: +/- 4 weeks by LMP, +/- 7 days by mean sac diameter (use before 6 weeks gestation if crown-rump length not able to be measured), +/- 5 days by crown-rump length (6-12 weeks gestation). Maternal organs: Ovaries appear within normal limits. IMPRESSION: Single living intrauterine at 7 weeks 4 days, SAGE of 11/17/2024. Reviewed by: Arnie Ruiz MD on 03/28/2024 4:32 PM PDT Approved by: Arnie Ruiz MD on 03/28/2024 4:32 PM PDT Station ID: [id number]
[2024-03-28 17:53] VITALS: BP 120/74; O2SAT 97
== END 2024-03-28 17:51 | disposition home or self-care (01) ==
LOC: ED 13:15
DX: O21.0 Mild hyperemesis gravidarum (principal); O99.891 Other specified diseases and conditions complicating pregnancy; E86.0 Dehydration; Z3A.01 Less than 8 weeks gestation of pregnancy
CPT/HCPCS: 36415; 80053; 81001; 81003; 83690; 83735; 84702; 85025; 87086; 96361; 96374; 96375; 96376; 99284

== ENCOUNTER 2024-04-11 17:23 | Emergency (ER) | payer OTHER ==
[2024-04-11 18:04] VITALS: O2SAT 100
[2024-04-11 18:30] LABS: BASOPHILS % (AUTO) 0.2 %; EOSINOPHILS % (AUTO) 0.2 %; HCT - HEMATOCRIT 43.7 % (37.0-47.0); HGB - HEMOGLOBIN 14.8 g/dL (12.0-16.0); LYMPHOCYTES # (AUTO) 1.6 10^3/uL (1.5-3.5); LYMPHOCYTES % (AUTO) 17.9 %; MEAN CORPUSCULAR HEMOGLOBIN 30.7 pg (27.0-31.0); MEAN CORPUSCULAR HGB CONC 33.9 g/dL (32.0-36.0); MEAN CORPUSCULAR VOLUME 90.7 fL (81.0-99.0); MEAN PLATELET VOLUME 9.4 fL (7.9-10.8); MONOCYTES # (AUTO) 0.4 10^3/uL (0.0-1.0); MONOCYTES % (AUTO) 4.4 %; NEUTROPHILS # (AUTO) 6.8 10^3/uL (1.5-6.6); NEUTROPHILS % (AUTO) 77.1 %; PLT - PLATELET COUNT 258 10^3/uL (130-450); RED BLOOD COUNT 4.82 10^6/uL (4.20-5.40); RED CELL DISTRIBUTION WIDTH 12.9 % (12.0-15.0); WHITE BLOOD COUNT 8.9 x10^3/uL (4.8-10.8)
[2024-04-11 18:40] LABS: ALBUMIN/GLOBULIN RATIO 1.3 (1.0-2.2); BILIRUBIN,TOTAL 1.2 mg/dL (0.2-1.0); CALCIUM 9.7 mg/dL (8.5-10.3); CREATININE 0.7 mg/dL (0.6-1.3); POTASSIUM 3.7 mmol/L (3.5-4.5); TOTAL PROTEIN 7.2 g/dL (6.4-8.9)
--- NOTE | 2024-04-11 20:30 | ED Physician Documentation ---
PD HPI NVD - Stated complaint Stated Complaint: NAUSEA - Chief complaint Chief Complaint: Abd Pain - History obtained from History obtained from: Patient - Additonal information Additional information: HPI from patient. Patient is approximately 9 weeks , complains of 48 hours of nausea and vomiting, "I cannot keep anything down, even liquids" (per patient). Patient says she was treated and released from this emergency department 2 weeks ago, prescription included Zofran, "I think I overdid it with the Zofran because now I am constipated, too." Patient also complains of episodic abdominal pain, across the upper abdomen but most pronounced in the epigastrium. This pain has been over the past 2 to 3 days, no inciting, exacerbating, ameliorating factors. Denies fevers. This is her second . First was relatively uncomplicated although she says she did require 2 trips to emergency departments for nausea vomiting that required fluids and antinauseants. Review of Systems Constitutional: reports: Sweats (only with vomiting). denies: Fever, Chills Cardiac: reports: Reviewed and negative Respiratory: reports: Reviewed and negative GI: reports: Abdominal Pain, Nausea, Vomiting, Constipation. 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 HEENT: None Psych: None Musculoskeletal: Rheumatoid arthritis Derm: None - Past Surgical History Past Surgical History: Yes General: Bowel surgery Ortho: Other - Present Medications Home Medications: Ambulatory Orders Medication Instructions Recorded Confirmed Ondansetron Odt [Zofran] 4 mg TL Q6H PRN #20 tablet 03/28/24 Pyridoxine HCl (Vitamin B6) 50 mg PO BID #40 tab 03/28/24 [Vitamin B6] Amox/Clav 875/125 [Augmentin 1 tablet PO Q12H 5 Days #10 tablet 04/12/24 875/125 Tab] Metoclopramide [Reglan] 10 mg PO Q6H PRN #20 tablet 04/12/24 - Allergies Allergies/Adverse Reactions: Allergies Allergy/AdvReac Type Severity Reaction Status Date / Time Sulfa (Sulfonamide Allergy Unknown Rash Verified 04/11/24 18:01 Antibiotics) hydrocodone bitartrate * AdvReac Unknown Itching Verified 04/11/24 18:01 [From Vicodin] - Social History Does the pt smoke?: No Smoking Status: Never smoker Does the pt drink ETOH?: No Does the pt have substance abuse?: No - Immunizations Immunizations are current?: Yes - POLST Patient has POLST: No PD ED PE NORMAL - Vitals Vital signs reviewed: Yes - General General: Alert and oriented X 3, No acute distress, Well developed/nourished - HEENT HEENT: Other (tacky mucous membranes) - Neck Neck: Supple, no meningeal sign - Cardiac Cardiac: RRR, No murmur - Respiratory Respiratory: No respiratory distress, Clear bilaterally - Abdomen Abdomen: Soft, Non distended, Other (TTP across epigastrium, most pronounced epigastrium and LUQ, no rebound or guarding) - Back Back: No CVA TTP - Derm Derm: Normal color, Warm and dry Results - Vitals Vitals: Vital Signs - 24 hr 04/11/24 04/11/24 04/12/24 17:54 22:01 00:22 Temperature 36.6 C 36.2 C L Heart Rate 98 84 58 L Respiratory 16 16 15 Rate Blood Pressure 115/89 H 122/63 119/84 H O2 Saturation 100 99 100 Oxygen O2 Source Room air - Labs Labs: Laboratory Tests 04/11/24 04/11/24 04/11/24 18:23 18:23 20:30 WBC 8.9 RBC 4.82 Hgb 14.8 Hct 43.7 MCV 90.7 MCH 30.7 MCHC 33.9 RDW 12.9 Plt Count 258 MPV 9.4 Neut # (Auto) 6.8 H Lymph # (Auto) 1.6 [place] # (Auto) 0.4 Eos # (Auto) 0.0 Baso # (Auto) 0.0 Absolute Nucleated RBC 0.00 Nucleated RBC % 0.0 Sodium 136 Potassium 3.7 Chloride 102 Carbon Dioxide 22 Anion Gap 12.0 BUN 14 Creatinine 0.7 Estimated GFR (MDRD) 97 Glucose 81 Calcium 9.7 Total Bilirubin 1.2 H AST 22 ALT 34 Alkaline Phosphatase 31 L Total Protein 7.2 Albumin 4.0 Globulin 3.2 Albumin/Globulin Ratio 1.3 Lipase 42 Urine Color DARK YELLOW Urine Clarity HAZY Urine pH 6.0 Ur Specific [place] >=1.030 H Urine Protein 30 H Urine Glucose (UA) NEGATIVE Urine Ketones >=80 H Urine Occult Blood NEGATIVE Urine Nitrite POSITIVE H Urine Bilirubin MODERATE H Urine Urobilinogen 2 H Ur Leukocyte Esterase TRACE H Urine RBC None Seen Urine WBC >25 H Ur Squamous Epith Cells MANY Squamous H Urine Bacteria Many H Urine Mucus Moderate Strands Ur Microscopic Review INDICATED Urine Culture Comments NOT INDICATED - Rads (name of study) RUQ US Relevant Findings:: Prelim report reviewed, See rad report PD Medical Decision Making - ED course Complexity details: reviewed results, re-evaluated patient, considered differential, d/w patient ED course: Patient was given 2 L normal saline IV, 10 mg Reglan IV, glycerin suppository. On reevaluation, patient reports feeling much improved and she is able to tolerate p.o. subsequent to these interventions. No concerning findings on CBC, ER abdominal panel; mildly elevated bilirubin is noted (1.2) with otherwise normal LFTs, normal lipase. Urinalysis is positive for nitrites, and >25 WBC/hpf on microscopy. The specimen is contaminated with squamous cells, but will cover possible UTI with augmentin (given 875mg PO and e-prescribed 5-day BID course of same). RUQ US undertaken and preliminary report (from heel painter) is GB sludge; however, final report not available during patient's ED stay due to difficulty in sending images to the overnight radiologist. Results d/w patient, return precautions reviewed. I am also e-prescribing metoclopramide to her pharmacy of choice. Departure - Departure Disposition: 01 Home, Self Care Clinical Impression: Vomiting, UTI (urinary tract infection) Condition: Good Instructions: ED UTI Cystitis Female, ED Nausea Vomiting Prescriptions: Amox/Clav 875/125 [Augmentin 875/125 Tab] 1 tablet PO Q12H 5 Days #10 tablet Metoclopramide [Reglan] 10 mg PO Q6H PRN #20 tablet PRN Reason: Nausea / Vomiting Comments: Prescriptions for metoclopramide (anti-nausea medication) and Augmentin (antibiotic) have been electronically submitted to the [facility] in [place]. Discharge Date/Time: 04/12/24 00:32
[2024-04-11 20:43] LABS: BILIRUBIN,URINE MODERATE (NEGATIVE); GLUCOSE, URINE (UA) NEGATIVE (NEGATIVE); KETONES,URINE (UA) >=80 mg/dL (NEGATIVE); LEUKOCYTE ESTERASE, URINE TRACE (NEGATIVE); NITRITE,URINE POSITIVE (NEGATIVE); OCCULT BLOOD,URINE NEGATIVE (NEGATIVE); PROTEIN,URINE 30 mg/dL (NEGATIVE); UROBILINOGEN,URINE 2 E.U./dL (NORMAL)
[2024-04-11 20:57] LABS: BACTERIA,URINE Many /HPF (None Seen); CLARITY,URINE HAZY (CLEAR); RBC,URINE None Seen /HPF (0-5); SQUAMOUS EPITHELIAL CELL,UR MANY Squamous (<= Few); WBC,URINE >25 /HPF (0-5)
[2024-04-11 20:58] LABS: MUCUS,URINE Moderate Strands
[2024-04-11] MEDS: SODIUM CHLORIDE 0.9% 2,000 ML IV STA (21:22)
[2024-04-11] MEDS: GLYCERIN ADULT SUPP PR STA (21:22)
[2024-04-11] MEDS: METOCLOPRAMIDE 10 MG/2 ML VIAL IVP STA (21:23)
[2024-04-12] MEDS ORDERED: cephALEXin 250 MG CAPSULE PO STA (00:10)
[2024-04-12 00:25] VITALS: BP 119/84
[2024-04-12] MEDS: AMOX/CLAV 875 MG/125 MG TABLET PO STA (00:25)
--- NOTE | 2024-04-12 09:30 | Ultrasound Report ---
PROCEDURE: Abdomen Limited INDICATIONS: abd. pain TECHNIQUE: Real-time focused scanning was performed of the abdomen, with image documentation. COMPARISONS: 05/20/2022 FINDINGS: Liver measures 14 to 15 cm. Mildly increased and coarsened echotexture. Main portal vein is patent. Gallbladder sludge is present without discrete stones. No sonographic Leone's sign. CBD within normal limits at 5 mm. Right kidney measures 11 cm. IMPRESSION: Mildly increased and coarsened hepatic echotexture, nonspecific, possibly due to fibrofatty infiltrat ion. Gallbladder sludge. No discrete stones or sonographic Leone's sign. No biliary ductal dilation on ul trasound. Reviewed by: Sancho Kumari MD on 04/12/2024 9:29 AM PDT Approved by: Sancho Kumari MD on 04/12/2024 9:29 AM PDT Station ID: [id number]
== END 2024-04-12 00:32 | disposition home or self-care (01) ==
LOC: ED 17:23
DX: O26.891 Other specified pregnancy related conditions, first trimester (principal); R11.2 Nausea with vomiting, unspecified; O23.41 Unspecified infection of urinary tract in pregnancy, first trimester; N39.0 Urinary tract infection, site not specified; O99.281 Endocrine, nutritional and metabolic diseases complicating pregnancy, first trimester; E80.6 Other disorders of bilirubin metabolism; O99.611 Diseases of the digestive system complicating pregnancy, first trimester; K82.8 Other specified diseases of gallbladder; Z3A.09 9 weeks gestation of pregnancy
CPT/HCPCS: 36415; 76705; 80053; 81001; 83690; 85025; 96374; 99284; A9270; J2765; 81003; 87086